=== PATIENT | female | born 1930 | race Caucasian/White ===

== ENCOUNTER 2016-11-22 08:33 | Inpatient (IN) | payer MEDICARE ==
[~2016-11-22] VITALS: Ht 157.5 cm; Wt 61.7 kg
[2016-11-22] VITALS (10 sets, daily range): BP systolic 96–128; BP diastolic 46–64; PULSE 72–103; RESP 16–20; TEMP 98.3–100.3; O2SAT 90–100
[~2016-11-22 08:33] MED LIST: ANAS1 PO; CHOLCRY; DIGO0.12 PO; DILT1TAB4 PO; FURO40TA PO; LEVO75TA3 PO; NITR1CAP37 PO; OXYGENTANK NAS.CANULA; POTA-243 PO; SERT-132 PO; WARF-23 PO
[2016-11-22] MEDS ORDERED: CART240C PO (08:59)
--- NOTE | 2016-11-22 09:10 | PD ---
HPI Chief Complaint: Altered Mental Status Time Seen by Provider: 08:57 Travel History International Travel<30 days: No Contact w/Intl Traveler<30days: No Traveled to known affect area: No History of Present Illness HPI This is an 86-year-old female who presents to the emergency department having been ill with high fevers and productive cough for the past 3 days. She was seen at an urgent care yesterday and told she had pneumonia and they were considering admitting her but ultimately send her home. This morning her son checked on her and found her on the ground. He says the house was in disarray and it looked like she had fallen. The patient says she feels fine. She doesn' t have any complaints at this time. Her son says she was very confused this morning in the front like her. She has no history of dementia. He says often when she's confused means she hasn't slept the night before. She does have a history of mitral valve regurgitation for which she sees a sporting goods sales associate. She is on Lasix and she is on Coumadin and digoxin. PFSH Past Medical History Hx Anticoagulant Therapy: Yes (coumadin) Arthritis: Yes Asthma: No Atrial Fibrillation: Yes Blood Disorders: No Anxiety: No Depression: Yes Heart Rhythm Problems: Yes Cancer: Yes (CASH BREAST) Cardiac Catheterization: Yes Cardiovascular Problems: Yes (htbn on meds) High Cholesterol: No Chemotherapy: No Chest Pain: No Congestive Heart Failure: Yes COPD: Yes Cerebrovascular Accident: No Diabetes: Yes (type 2) Diminished Hearing: No Endocrine: Yes GERD: No Genitourinary: Yes Hiatal Hernia: No Hypertension: Yes Immune Disorder: No Implanted Vascular Access Dvce: Yes (PACER) Kidney Stones: No Musculoskeletal: Yes Neurologic: No Psychiatric: No Reproductive: No Respiratory: Yes (copd) Immunizations Current: Yes Radiation Therapy: Yes Renal Failure: No Sleep Apnea: Yes Thyroid Disease: Yes (GOITER REMOVED) Ulcer: No Menopausal: Yes Past Surgical History Abdominal Surgery: Yes (APPENDECTOMY) AICD: No Appendectomy: Yes Arteriovenous Shunt: No Cardiac Surgery: Yes (PACER) Ear Surgery: No Endocrine Surgery: Yes (GOITER REMOVED) Eye Surgery: No Genitourinary Surgery: No Gynecologic Surgery: Yes (CASH LUMPECTOMY) Hysterectomy: No Insulin Pump: No Joint Replacement: Yes (RIGHT KNEE) Oral Surgery: No Pacemaker: Yes Thoracic Surgery: No Tonsillectomy: Yes 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) Social History Alcohol Use: No Tobacco Use: No (QUIT 40 YRS AGO) Substance Use: No Allergies-Medications (Allergen,Severity, Reaction): Coded Allergies: Codeine (Verified Allergy, Severe, Hallucinations, 11/22/16) Penicillin (Verified Allergy, Unknown, HIVES, 11/22/16) Reported Meds & Prescriptions Reported Meds & Active Scripts Active Levothyroxine (Levothyroxine Sodium) 75 Mcg Tab 75 Mcg PO DAILY Reported Cartia Xt (Diltiazem ER 24 HR) 240 Mg Caper 240 Mg PO DAILY Warfarin 5 Mg Tab 5 Mg PO DAILY Klor-Con 10 (Potassium Chloride) 10 Meq Tab 20 Meq PO BID Arimidex (Anastrozole) 1 Mg Tab 1 Mg PO DAILY Sertraline (Sertraline HCl) 50 Mg Tab 50 Mg PO DAILY Oxygen tank (Oxygen) 1 Ea Tank 2 Liter JONNY.CANKupoya CONTINUOUS Oxygen Concentrator Portable Gaseous 2 L/min via Nasal Cannula Continuous For 99 months Nitrofurantoin Macrocrystal 50 Mg Cap 50 Mg PO BID PRN Furosemide 40 Mg Tab 40 Mg PO BID Digoxin 0.125 Mg Tab 0.125 Mg PO DAILY Review of Systems Except as stated in HPI: all other systems reviewed are Neg Physical Exam Narrative GENERAL: Frail elderly female in no acute distress SKIN: Warm and dry. HEAD: Atraumatic. Normocephalic. EYES: Pupils equal and round. No injection or drainage. ENT: Dry mucous membranes. NECK: Trachea midline. CARDIOVASCULAR: Regular rate and rhythm. No murmur appreciated. RESPIRATORY: Rales in the left upper and lower lung johnson with some tachypnea GASTROINTESTINAL: Abdomen soft, non-tender, nondistended. MUSCULOSKELETAL: No obvious deformities. NEUROLOGICAL: Awake and alert. Oriented to person, place and time. No obvious cranial nerve deficits. Moving all extremities. PSYCHIATRIC: Appropriate mood and affect; insight and judgment normal. Data Data Last Documented VS Vital Signs Date Time Temp Pulse Resp B/P Pulse Ox O2 Delivery O2 Flow Rate FiO2 11/22/16 10:35 101 17 121/64 100 Nasal Cannula 2 11/22/16 08:40 99.3 Orders Electrocardiogram (11/22/16 08:57) Complete Blood Count With Diff (11/22/16 08:57) Comprehensive Metabolic Panel (11/22/16 08:57) Prothrombin Time / Inr (Pt) (11/22/16 08:57) Act Partial Throm Time (Ptt) (11/22/16 08:57) Lactic Acid Sepsis Protocol (11/22/16 08:57) Troponin I (11/22/16 08:57) Urinalysis - C+S If Indicated (11/22/16 08:57) Influenzae A/B Antigen (11/22/16 08:57) Blood Culture (11/22/16 08:57) Sputum Culture And Gram Stain (11/22/16 08:57) Chest, Single Ap (11/22/16 08:57) Blood Glucose (11/22/16 08:57) Ecg Monitoring (11/22/16 08:57) Iv Access Insert/Monitor (11/22/16 08:57) Oximetry (11/22/16 08:57) Oxygen Administration (11/22/16 08:57) Creatine Kinase (Cpk) (11/22/16 08:57) Cath For Specimen (11/22/16 08:57) Ct Brain W/O Iv Contrast(Rout) (11/22/16 ) B-Type Natriuretic Peptide (11/22/16 08:58) Digoxin (11/22/16 08:20) Levofloxacin 750 Mg Premix Inj (Levaquin (11/22/16 10:15) CKMB (11/22/16 08:20) CKMB% (11/22/16 08:20) Urine Culture (11/22/16 10:23) Admit Order (Ed Use Only) (11/22/16 10:35) Labs Laboratory Tests Test 11/22/16 11/22/16 11/22/16 08:20 09:15 10:23 White Blood Count 22.1 TH/MM3 Red Blood Count 3.76 MIL/MM3 Hemoglobin 12.7 GM/DL Hematocrit 38.1 % Mean Corpuscular Volume 101.4 FL Mean Corpuscular Hemoglobin 33.9 PG Mean Corpuscular Hemoglobin 33.4 % Concent Red Cell Distribution Width 16.7 % Platelet Count 183 TH/MM3 Mean Platelet Volume 7.5 FL Neutrophils (%) (Auto) 92.7 % Lymphocytes (%) (Auto) 2.0 % Monocytes (%) (Auto) 5.1 % Eosinophils (%) (Auto) 0.1 % Basophils (%) (Auto) 0.1 % Neutrophils # (Auto) 20.6 TH/MM3 Lymphocytes # (Auto) 0.4 TH/MM3 Monocytes # (Auto) 1.1 TH/MM3 Eosinophils # (Auto) 0.0 TH/MM3 Basophils # (Auto) 0.0 TH/MM3 CBC Comment AUTO DIFF Differential Comment AUTO DIFF CONFIRMED Prothrombin Time 20.7 SEC Prothromb Time International 1.8 RATIO Ratio Activated Partial 40.4 SEC Thromboplast Time Sodium Level 136 MEQ/L Potassium Level 4.3 MEQ/L Chloride Level 99 MEQ/L Carbon Dioxide Level 24.7 MEQ/L Anion Gap 12 MEQ/L Blood Urea Nitrogen 35 MG/DL Creatinine 1.40 MG/DL Estimat Glomerular Filtration 36 ML/MIN Rate Random Glucose 156 MG/DL Calcium Level 9.5 MG/DL Total Bilirubin 3.1 MG/DL Aspartate Amino Transf 46 U/L (AST/SGOT) Alanine Aminotransferase 26 U/L (ALT/SGPT) Alkaline Phosphatase 61 U/L Total Creatine Kinase 396 U/L Creatine Kinase MB 0.8 NG/ML Creatine Kinase MB % 0.2 % Troponin I 0.19 NG/ML B-Type Natriuretic Peptide 1046 PG/ML Total Protein 8.7 GM/DL Albumin 4.1 GM/DL Digoxin Level 1.4 NG/ML Lactic Acid Level 2.7 mmol/L Urine Collection Type CATH Urine Color YELLOW Urine Turbidity MOD Urine pH 5.5 Urine Specific [place] 1.021 Urine Protein 300 OR GREATER mg/dL Urine Glucose (UA) NEG mg/dL Urine Ketones NEG mg/dL Urine Occult Blood LARGE Urine Nitrite NEG Urine Bilirubin NEG Urine Leukocyte Esterase NEG Urine RBC 25-49 /hpf Urine WBC 0-2 /hpf Urine Bacteria OCC /hpf Urine Yeast (Budding) FEW Microscopic Urinalysis Comment CATH-CULTURE IND Urine Collection Time 10:23 MDM Medical Decision Making Medical Screen Exam Complete: Yes Emergency Medical Condition: Yes Interpretation(s) EKG: atrial fibrillation, st depressions in the lateral leads seen on ekg from 04/17 leukocytosis of 22 renal insufficiency with creatinine 1.4 increased from prior troponin .19 bnp elevated Last 24 hours Impressions Chest X-Ray 11/22/16 0857 Signed Impressions: Service Date/Time: Tuesday, November 22, 2016 09:11 - CONCLUSION: 1. Dense airspace consolidation at the left lung apex. In the appropriate clinical setting this could represent an infectious process. Alternatively, a pulmonary mass could have this appearance. 2. Stable enlargement of the cardiac silhouette with mild perihilar interstitial changes which could indicate mild interstitial edema. Austin Skelton MD Head CT 11/22/16 0000 Signed Impressions: Service Date/Time: Tuesday, November 22, 2016 09:46 - CONCLUSION: No acute intracranial abnormality is identified. Austin Skelton MD Differential Diagnosis pneumonia, urinary tract infection, sepsis, congestive heart failure, myocardial infarction Narrative Course This is an 86 year old female who has a history of atrial fibrillation and congestive heart failure who presents to the emergency department with increasing fevers, chills and cough over the past several days. She is placed on a monitor and an IV was established. Labs were obtained which demonstrate a marked leukocytosis. Patient has evidence of a left upper lobe pneumonia on chest x-ray. This is consistent with her symptoms. She was given a dose of Levaquin. She also has an elevated BNP which is consistent with her history of congestive heart failure, and her troponin is 0.19 which I suspect is strain related but should be trended in the hospital. EKG demonstrates some ST depressions in the lateral leads which are not new. I think patient requires admission for continued antibiotic therapy and cardiology consultation. Patient was slightly tachycardic on arrival but didn't take her morning digoxin or diltiazem so both of those were administered in the emergency department. Dr. Sierra called and wants the patient transferred to the main hospital given her elevated troponin. Physician Communication Physician Communication Discussed with Dr. Sierra and Dr. Wells Diagnosis Primary Impression: PNA (pneumonia) Qualified Code: J18.1 - Pneumonia of left upper lobe due to infectious organism Additional Impression: Congestive heart failure (CHF) Qualified Code: I50.9 - Acute on chronic congestive heart failure, unspecified congestive heart failure type Admitting Information Admitting Physician Requests: Admit Lita Maria MD Nov 22, 2016 09:10
[2016-11-22 09:36] LABS: AUTOMATED NEUTROPHIL # 20.6 TH/MM3 (1.8-7.7); BASOPHIL % 0.1 % (0.0-2.0); EOSINOPHIL % 0.1 % (0.0-4.0); HEMATOCRIT 38.1 % (35.0-46.0); LYMPHOCYTE # 0.4 TH/MM3 (1.0-4.8); MEAN CELL VOLUME 101.4 FL (80.0-100.0); MEAN CORPUSCULAR HEMOGLOBIN 33.9 PG (27.0-34.0); MEAN CORPUSCULAR HGB CONC 33.4 % (32.0-36.0); MONO % 5.1 % (0.0-8.0); NEUT % 92.7 % (16.0-70.0); PLATELET COUNT 183 TH/MM3 (150-450); RED BLOOD COUNT 3.76 MIL/MM3 (4.00-5.30); RED CELL DISTRIBUTION WIDTH 16.7 % (11.6-17.2); WHITE BLOOD COUNT 22.1 TH/MM3 (4.0-11.0)
[2016-11-22 09:37] LABS: HEMO FLAGS AUTO DIFF
--- NOTE | 2016-11-22 09:39 | RADHPO ---
EXAM DATE/TIME: 11/22/2016 09:11 [facility] COMPARISON: CHEST SINGLE AP, April 15, 2016, 19:08. INDICATIONS : Short of breath MEDICAL HISTORY : Carcinoma, breast. SURGICAL HISTORY : Pacemaker. ENCOUNTER: Initial ACUITY: 1 day PAIN SCORE: 0/10 LOCATION: Bilateral chest FINDINGS: Portable AP view of the chest demonstrate stable enlargement of the cardiac silhouette. Single lead l eft chest wall cardiac pacing device is present. There is focal dense consolidation in the left lung apex. There are mild interstitial opacities bilaterally. No pneumothorax or pleural effusion is visua lized. CONCLUSION: 1. Dense airspace consolidation at the left lung apex. In the appropriate clinical setting this could represent an infectious process. Alternatively, a pulmonary mass could have this appearance. 2. Stable enlargement of the cardiac silhouette with mild perihilar interstitial changes which could indicate mild interstitial edema. Austin Skelton MD on November 22, 2016 at 9:36 Board Certified Radiologist. This report was verified electronically.
[2016-11-22 09:53] LABS: CHLORIDE 99 MEQ/L (98-107); POTASSIUM 4.3 MEQ/L (3.5-5.1); SODIUM (NA) 136 MEQ/L (136-145)
[2016-11-22 09:57] LABS: ANION GAP 12 MEQ/L (5-15); BICARBONATE 24.7 MEQ/L (21.0-32.0); BLOOD UREA NITROGEN 35 MG/DL (7-18)
[2016-11-22 10:00] LABS: ALT (GPT) 26 U/L (10-53); GLOMERULAR FILTRATION RATE 36 ML/MIN (>89)
[2016-11-22 10:01] LABS: TOTAL BILIRUBIN ADULT 3.1 MG/DL (0.2-1.0)
[2016-11-22 10:03] LABS: ALKALINE PHOSPHATASE 61 U/L (45-117); CREATINE KINASE 396 U/L (26-192)
[2016-11-22 10:04] LABS: AST (GOT) 46 U/L (15-37); SCAN/DIFF AUTO DIFF CONFIRMED
[2016-11-22 10:11] LABS: APTT (PATIENT) 40.4 SEC (24.3-30.1); INTERNATIONAL NORMALIZED RATIO 1.8 RATIO; PROTHROMBIN TIME - PATIENT 20.7 SEC (9.8-11.6)
[2016-11-22 10:14] LABS: DIGOXIN 1.4 NG/ML (0.8-2.0)
[2016-11-22 10:15] LABS: CKMB 0.8 NG/ML (0.5-3.6)
[2016-11-22] MEDS ORDERED: LEVOFLOXACIN 750 MG PREMIX INJ 150 ML IV ONE (10:15)
--- NOTE | 2016-11-22 10:19 | RADHPO ---
EXAM DATE/TIME: 11/22/2016 09:46 [facility] COMPARISON: No previous studies available for comparison. INDICATIONS : Fall last night, confusion this morning. RADIATION DOSE: 62.50 CTDIvol (mGy) MEDICAL HISTORY : Carcinoma, breast. Congestive heart failure. Diabetes mellitus type 2. SURGICAL HISTORY : Pacemaker. ENCOUNTER: Initial ACUITY: 1 day PAIN SCALE: 0/10 LOCATION: Bilateral head TECHNIQUE: Multiple contiguous axial images were obtained of the head. Using automated exposure control and adj ustment of the mA and/or kV according to patient size, radiation dose was kept as low as reasonably a chievable to obtain optimal diagnostic quality images. FINDINGS: CEREBRUM: The ventricles are normal for age. No evidence of midline shift, mass lesion, hemorrhage or acute in farction. No extra-axial fluid collections are seen. POSTERIOR FOSSA: The cerebellum and brainstem are intact. The 4th ventricle is midline. The cerebellopontine angle i s unremarkable. EXTRACRANIAL: The visualized portion of the orbits is intact. SKULL: The calvaria is intact. No evidence of skull fracture. CONCLUSION: No acute intracranial abnormality is identified. Austin Skelton MD on November 22, 2016 at 10:16 Board Certified Radiologist. This report was verified electronically.
[2016-11-22 10:27] LABS: BLOOD, URINE LARGE (NEG); GLUCOSE,URINE NEG (NEG); KETONE, URINE NEG (NEG); NITRITE,URINE NEG (NEG); PH, URINE 5.5 (5.0-8.5)
[2016-11-22 10:36] LABS: METHOD OF COLLECTION CATH; URINE COLOR YELLOW (YELLW/STRAW); WBC, URINE 0-2 /hpf (0-5)
[2016-11-22 10:37] LABS: BACTERIA, URINE OCC /hpf; COMMENT (UR) CATH-CULTURE IND; CULTURE IF INDICATED CATH CULTURE IND
[2016-11-22] MEDS ORDERED: SODIUM CHLORIDE 0.9% FLUSH 5 ML FLUSH IV FLUSH PRN (10:45)
[2016-11-22] MEDS ORDERED: RESP: ALBUTEROL 2.5 MG/IPRATROPIUM 0.5 MG NEB (PRN) INH (10:45)
[2016-11-22] MEDS ORDERED: ASPIRIN 81 MG CHEW TAB CHEW ONE (11:00)
[2016-11-22 11:33] LABS: LACTIC ACID GHOST NOT REPORTABLE
[2016-11-22] MEDS ORDERED: DILTIAZEM-CD 240 MG CAP ER PO ONE (12:00)
[2016-11-22] MEDS ORDERED: DIGOXIN 0.125 MG TAB PO ONE (12:00)
[2016-11-22] MEDS: AZTREONAM INJ 1,000 MG in SODIUM CHLORIDE 0.9% INJ 100 ML IV SCH ×2 (12:57→15:59)
--- NOTE | 2016-11-22 16:13 | RADHPO ---
EXAM DATE/TIME: 11/22/2016 15:06 [facility] COMPARISON: CHEST SINGLE AP, April 15, 2016, 19:08. CHEST SINGLE AP, November 22, 2016, 9:11. INDICATIONS : Evaluate for mass. RADIATION DOSE: 7.09 CTDIvol (mGy) MEDICAL HISTORY : Congestive heart failure. Hypertension. Carcinoma, breast. SURGICAL HISTORY : Pacemaker. ENCOUNTER: Initial ACUITY: 1 day PAIN SCALE: 0/10 LOCATION: Bilateral chest TECHNIQUE: Volumetric scanning of the chest was performed. Using automated exposure control and adjustment of t he mA and/or kV according to patient size, radiation dose was kept as low as reasonably achievable to obtain optimal diagnostic quality images. FINDINGS: There is a masslike area occupying much of the upper aspect of the left upper lung measuring at least 8 cm in diameter. There is some surrounding inflammatory change seen in this region. There is some milder consolidation seen in the superior segment of the left lower lobe. The right lung is grossly free of consolidation. There is a calcified granuloma in the right upper lung. No effusion is seen . There are prominent lymph nodes in the superior mediastinum, the prevascular region, the left trac heobronchial region and the subcarinal region. The heart size is enlarged especially the left atrium . The patient has a pacing device in place. Atherosclerotic calcifications are seen throughout the arterial system including the coronary arteries. There is degenerative change in the lower thoracic and upper lumbar spine. CONCLUSION: 1. Large masslike area seen in the left upper lung. This could represent a large area of consolidat ion. It could also represent a large neoplasm. There is associated adenopathy seen throughout the m ediastinum as described above. 2. Cardiomegaly. Patient has a pacemaker in place. Austin Pino MD on November 22, 2016 at 15:50 Board Certified Radiologist. This report was verified electronically.
[2016-11-22] MEDS: POTASSIUM CHLORIDE 10 MEQ CONTROLLED RELEASE TAB PO SCH (21:46)
[2016-11-22] MEDS: FUROSEMIDE 40 MG TAB PO SCH (21:47)
[2016-11-22] MEDS: SODIUM CHLORIDE 0.9% FLUSH 5 ML FLUSH IV FLUSH SCH (21:47)
[2016-11-22 22:37] LABS: CKMB 0.7 NG/ML (0.5-3.6)
[2016-11-22] MEDS ORDERED: SERTRALINE HCL 50 MG TAB PO ONE (23:45)
[2016-11-23] VITALS (15 sets, daily range): BP systolic 95–126; BP diastolic 50–73; PULSE 74–111; RESP 18–22; TEMP 98.1–99.4; O2SAT 90–96
[2016-11-23] MEDS: ONDANSETRON HCL 4 MG/2 ML VIAL IV PUSH PRN (01:37)
[2016-11-23] MEDS: AZTREONAM INJ 1,000 MG in SODIUM CHLORIDE 0.9% INJ 100 ML IV SCH ×3 (04:00→22:23)
[2016-11-23 06:58] LABS: AUTOMATED NEUTROPHIL # 20.8 TH/MM3 (1.8-7.7); BASOPHIL % 0.2 % (0.0-2.0); HEMATOCRIT 31.6 % (35.0-46.0); LYMPHOCYTE # 0.5 TH/MM3 (1.0-4.8); MEAN CORPUSCULAR HEMOGLOBIN 34.1 PG (27.0-34.0); MEAN CORPUSCULAR HGB CONC 34.1 % (32.0-36.0); NEUT % 92.8 % (16.0-70.0); PLATELET COUNT 148 TH/MM3 (150-450); RED BLOOD COUNT 3.16 MIL/MM3 (4.00-5.30); RED CELL DISTRIBUTION WIDTH 16.9 % (11.6-17.2); WHITE BLOOD COUNT 22.4 TH/MM3 (4.0-11.0)
[2016-11-23 07:02] LABS: HEMO FLAGS AUTO DIFF
[2016-11-23 07:16] LABS: BICARBONATE 23.4 MEQ/L (21.0-32.0); POTASSIUM 3.9 MEQ/L (3.5-5.1)
[2016-11-23] MEDS ORDERED: WARFARIN SOD 5 MG TAB PO SCH (09:00)
[2016-11-23] MEDS ORDERED: SERTRALINE HCL 50 MG TAB PO SCH (09:00)
[2016-11-23 09:36] LABS: BANDS 15 % (0-6); NEUTROPHIL # MANUAL DIFF 19.7 TH/MM3 (1.8-7.7); POLYS (SEG NEUTROPHILS) 73 % (16-70); WBC DIFF SAMPLE 100
[2016-11-23 09:37] LABS: KERATOCYTES OCC (NORMAL); OVALOCYTES 1+ (NORMAL); PLATELET ESTIMATE SMEAR NORMAL (NORMAL); PLATELET MORPHOLOGY NORMAL (NORMAL); SCAN/DIFF FINAL DIFF MANUAL
--- NOTE | 2016-11-23 09:38 | HHI.HP ---
HPI Service [facility] Primary Care Physician Nadya Cuello MD Admission Diagnosis pneumonia, chf Diagnoses: (1) Severe sepsis (2) Toxic metabolic encephalopathy (3) PNA (pneumonia) (4) COPD (chronic obstructive pulmonary disease) (5) ARF (acute renal failure) (6) Hypothyroidism (7) Non-ST elevation IN (NSTEMI) Chief Complaint: High fever and chills along with cough production Travel History International Travel<30 Days: No Contact w/Intl Traveler <30 Da: No Traveled to Known Affected Are: No Sepsis Criteria SIRS Criteria (2 or more): Heart rate over 90, WBC > 72225, < 4000 or > 10% bands Sepsis Criteria (SIRS+source): Infect source susp/known Severe Sepsis (+one): Lactate >2 History of Present Illness 86 year-old female with a history of of atrial fibrillation on Coumadin was brought to the emergency department for evaluation of 3 day history of febrile episode along with cough production. Apparently patient was seen by local urgent care on 11/21/16 and was diagnosed with pneumonia however discharge home. Early yesterday morning on 11/22/16, patient was found on the ground by her son will check on her and stated she was fine however confused. At that time she has no complaints. Patient denies any GI bleed or abdominal pain or current chest pain Review of Systems Other Other 12 systems reviewed and are negative except for the one mentioned in the history of present illness Past Family Social History Past Medical History CHF, atrial fib, Rheumatic fever as a child, mitral and tricuspid valve regurgitation, Aortic stenosis, depression, hypothyroidism, breast cancer s/p lumpectomy/radiation CKD Past Surgical History Appendectomy, bilateral lumpectomies, pacemaker placement, thyroidectomy, left total knee arthroplasty Reported Medications Levothyroxine (Levothyroxine Sodium) 75 Mcg Tab 75 Mcg PO DAILY Cartia Xt (Diltiazem ER 24 HR) 240 Mg Caper 240 Mg PO DAILY Warfarin 5 Mg Tab 5 Mg PO DAILY Klor-Con 10 (Potassium Chloride) 10 Meq Tab 20 Meq PO BID Arimidex (Anastrozole) 1 Mg Tab 1 Mg PO DAILY Sertraline (Sertraline HCl) 50 Mg Tab 50 Mg PO DAILY Oxygen tank (Oxygen) 1 Ea Tank 2 Liter JONNY.CANULA CONTINUOUS Oxygen Concentrator Portable Gaseous 2 L/min via Nasal Cannula Continuous For 99 months Nitrofurantoin Macrocrystal 50 Mg Cap 50 Mg PO BID PRN Furosemide 40 Mg Tab 40 Mg PO BID Digoxin 0.125 Mg Tab 0.125 Mg PO DAILY Allergies: Coded Allergies: Codeine (Verified Allergy, Severe, Hallucinations, 11/22/16) Penicillin (Verified Allergy, Unknown, HIVES, 11/22/16) Family History daughter from breast CA sister w breast CA brother w lung CA father w CVA Mom with emphysema Social History smoked tobacco 1ppd from age [age], quit 50 years ago denies any alcohol or illegal drug use Physical Exam Vital Signs Vital Signs Date Time Temp Pulse Resp B/P Pulse Ox O2 Delivery O2 Flow Rate FiO2 11/23/16 08:00 98.1 94 20 104/59 95 11/23/16 05:13 98.1 97 18 99/57 92 11/23/16 05:12 92 Nasal Cannula 2.00 11/23/16 03:20 91 Nasal Cannula 2.00 11/23/16 01:00 98.3 106 18 126/63 91 11/23/16 00:00 91 Nasal Cannula 2.00 11/22/16 20:16 94 Nasal Cannula 2.00 11/22/16 20:06 98.3 72 16 102/46 94 11/22/16 20:00 85 11/22/16 19:14 100 Nasal Cannula 2.00 11/22/16 19:00 87 11/22/16 18:00 100.3 86 20 96/54 92 11/22/16 18:00 92 Nasal Cannula 2.00 11/22/16 13:52 99.4 101 17 126/60 97 Nasal Cannula 2 11/22/16 13:38 100 Nasal Cannula 2.00 11/22/16 10:35 101 17 121/64 100 Nasal Cannula 2 11/22/16 09:59 17 100 Nasal Cannula 2 11/22/16 09:51 89 89 Nasal Cannula 2 11/22/16 09:51 100 Nasal Cannula 2 Physical Exam GENERAL: This is a well-nourished, well-developed patient, in no apparent distress. SKIN: No rashes, ecchymoses or lesions. Cool and dry. HEAD: Atraumatic. Normocephalic. No temporal or scalp tenderness. EYES: Pupils equal round and reactive. Extraocular motions intact. No scleral icterus. No injection or drainage. ENT: Nose without bleeding, purulent drainage or septal hematoma. Throat without erythema, tonsillar hypertrophy or exudate. Uvula midline. Airway patent. NECK: Trachea midline. No JVD or lymphadenopathy. Supple, nontender, no meningeal signs. CARDIOVASCULAR: Regular rate and rhythm without murmurs, gallops, or rubs. RESPIRATORY: Clear to auscultation. Breath sounds equal bilaterally. No wheezes , rales, or rhonchi. GASTROINTESTINAL: Abdomen soft, non-tender, nondistended. No hepato-splenomegaly , or palpable masses. No guarding. MUSCULOSKELETAL: Extremities without clubbing, cyanosis, or edema. No joint tenderness, effusion, or edema noted. No calf tenderness. Negative Homans sign bilaterally. NEUROLOGICAL: Awake and alert. Cranial nerves II through XII intact. Motor and sensory grossly within normal limits. Five out of 5 muscle strength in all muscle groups. Normal speech. Laboratory Laboratory Tests Test 11/22/16 11/22/16 11/22/16 11/22/16 10:23 11:20 14:20 21:25 Urine Collection Type CATH Urine Color YELLOW Urine Turbidity MOD Urine pH 5.5 Urine Specific [place] 1.021 Urine Protein 300 OR GREATER Urine Glucose (UA) NEG Urine Ketones NEG Urine Occult Blood LARGE Urine Nitrite NEG Urine Bilirubin NEG Urine Leukocyte Esterase NEG Urine RBC 25-49 Urine WBC 0-2 Urine Bacteria OCC Urine Yeast (Budding) FEW Microscopic Urinalysis Comment CATH-CULTURE IND Urine Collection Time 10:23 Lactic Acid Level 1.8 Total Creatine Kinase 351 246 Creatine Kinase MB 1.0 0.7 Creatine Kinase MB % 0.3 0.3 Troponin I 0.27 0.15 Test 11/23/16 05:30 White Blood Count 22.4 Red Blood Count 3.16 Hemoglobin 10.8 Hematocrit 31.6 Mean Corpuscular Volume 100.0 Mean Corpuscular Hemoglobin 34.1 Mean Corpuscular Hemoglobin 34.1 Concent Red Cell Distribution Width 16.9 Platelet Count 148 Mean Platelet Volume 8.7 Neutrophils (%) (Auto) 92.8 Lymphocytes (%) (Auto) 2.0 Monocytes (%) (Auto) 5.0 Eosinophils (%) (Auto) 0.0 Basophils (%) (Auto) 0.2 Neutrophils # (Auto) 20.8 Lymphocytes # (Auto) 0.5 Monocytes # (Auto) 1.1 Eosinophils # (Auto) 0.0 Basophils # (Auto) 0.0 CBC Comment AUTO DIFF Sodium Level 134 Potassium Level 3.9 Chloride Level 100 Carbon Dioxide Level 23.4 Anion Gap 11 Blood Urea Nitrogen 36 Creatinine 1.07 Estimat Glomerular Filtration 49 Rate Random Glucose 98 Calcium Level 8.6 Date/Time Procedure Status Source Growth 11/22/16 23:30 Gram Stain - Final Resulted Sputum Expectorated Sputum 11/22/16 23:30 Sputum Culture Resulted Sputum Expectorated Sputum Pending 11/22/16 10:23 Urine Culture Received Urine Catheterized Urine Pending 11/22/16 10:23 Legionella Antigen Received Urine Random Urine Pending 11/22/16 10:23 Streptococcus pneumoniae Antigen (M Received Urine Random Urine Pending 11/22/16 09:25 Aerobic Blood Culture Received Blood Peripheral Pending 11/22/16 09:25 Anaerobic Blood Culture Received Blood Peripheral Pending 11/22/16 09:15 Influenza Types A,B Antigen (CARLA) - Final Complete Nasal Washing NEGATIVE FOR FLU A AND B ANTIGEN.... Result Diagram: 11/23/16 0530 11/23/16 0530 Imaging Last Impressions Chest X-Ray 11/22/16 0857 Signed Impressions: Service Date/Time: Tuesday, November 22, 2016 09:11 - CONCLUSION: 1. Dense airspace consolidation at the left lung apex. In the appropriate clinical setting this could represent an infectious process. Alternatively, a pulmonary mass could have this appearance. 2. Stable enlargement of the cardiac silhouette with mild perihilar interstitial changes which could indicate mild interstitial edema. Austin Skelton MD Head CT 11/22/16 0000 Signed Impressions: Service Date/Time: Tuesday, November 22, 2016 09:46 - CONCLUSION: No acute intracranial abnormality is identified. Austin Skelton MD Chest CT 11/22/16 0000 Signed Impressions: Service Date/Time: Tuesday, November 22, 2016 15:06 - CONCLUSION: 1. Large masslike area seen in the left upper lung. This could represent a large area of consolidation. It could also represent a large neoplasm. There is associated adenopathy seen throughout the mediastinum as described above. 2. Cardiomegaly. Patient has a pacemaker in place. Austin Pino MD Assessment and Plan Problem List: (1) Severe sepsis ICD Code: A41.9 Status: Acute (2) Toxic metabolic encephalopathy ICD Code: G92 Status: Acute (3) PNA (pneumonia) ICD Code: J18.9 Status: Acute Assessment and Plan 86-year-old female with Severe sepsis: Heart rate over 90, WBC > 76771, < 4000 or > 10% bands, Lactate > 2 and source due to pneumonia; status post Levaquin in ED, currently on Azactam and Levaquin IV. Follow blood, sputum culture as well as Legionella and strep pneumo antigen Community-acquired pneumonia: Chest x-ray noted and reviewed by me with finding of Dense airspace consolidation at the left lung apex. Follow-up CT chest with finding of Large masslike area seen in the left upper lung. Flu A and B antigens negative. Currently on Azactam Levaquin pending sputum culture. Maintain oxygen saturation above 92%, DuoNeb when necessary Toxic metabolic encephalopathy: From above infectious processes versus CHF exacerbation. Head CT noted and reviewed by me with No acute intracranial abnormality is identified. Patient currently alert and oriented 3. Encephalopathy resolved. CHF exacerbation: Unknown type; BNP 1046 with elevated serial cardiac enzyme for which cardiology has been consulted. Currently on Lasix by mouth twice a day, CHF education and strict I's and O's. Check 2-D echo Elevated cardiac enzyme: Likely secondary to CHF exacerbation. Cardiology consultation pending Acute on chronic kidney disease: Renal indices improving, however secondary to CHF exacerbation will hold on IV fluid hydration. Monitor BUN/creatinine and avoid all nephrotoxic drugs Atrial fibrillation: Currently rate control on Cardizem, Coumadin, digoxin and monitor level. Monitor INR/ History of breast cancer: Continue Arimidex COPD with oxygen dependent: No exacerbation, DuoNeb when necessary and keep oxygen saturation above 92% Hypothyroidism: Continue Synthroid DVT prophylaxis: Coumadin GI prophylaxis: PPI Code Status Full code Discussed Condition With Patient Physician Certification 2 Midnight Certification Type: Admission for Inpatient Services Order for Inpatient Services The services are ordered in accordance with Medicare regulations or non- Medicare payer requirements, as applicable. In the case of services not specified as inpatient-only, they are appropriately provided as inpatient services in accordance with the 2-midnight benchmark. Estimated LOS (days): 2 days is the estimated time the patient will need to remain in the hospital, assuming treatment plan goals are met and no additional complications. Post-Hospital Plan: Not yet determined Problem Qualifiers (1) PNA (pneumonia): Qualified Code: J18.1 - Pneumonia of left upper lobe due to infectious organism Aquilino Estrada MD Nov 23, 2016 09:38
[2016-11-23] MEDS: POTASSIUM CHLORIDE 10 MEQ CONTROLLED RELEASE TAB PO SCH ×2 (09:52→22:21)
[2016-11-23] MEDS: FUROSEMIDE 40 MG TAB PO SCH ×2 (09:52→22:21)
[2016-11-23] MEDS: DILTIAZEM-CD 240 MG CAP ER PO SCH (09:52)
[2016-11-23] MEDS: DIGOXIN 0.125 MG TAB PO SCH (09:52)
[2016-11-23] MEDS: LEVOTHYROXINE SODIUM 75 MCG TAB PO SCH (09:53)
[2016-11-23] MEDS ORDERED: RESP: ALBUTEROL 2.5 MG/IPRATROPIUM 0.5 MG NEB (PRN) NEB (10:00)
--- NOTE | 2016-11-23 10:43 | EC ---
Study Study Date:11/22/2016 STUDY CONCLUSIONS SUMMARY - Left ventricle: The cavity size was normal. Wall thickness was normal. Systolic function was normal. The estimated ejection fraction was in the range of 55% to 60%. Wall motion was normal; there were no regional wall motion abnormalities. - Aortic valve: Mild regurgitation. - Mitral valve: Moderate regurgitation. - Tricuspid valve: Severe regurgitation. - Pulmonary arteries: PA peak pressure: 157mm Hg (S). If LV function is below 40, please consider prescribing an ACEI or ARB or document rationale for non-use. PROCEDURE DATA STUDY STATUS: Elective. Procedure: Transthoracic echocardiography. Image quality was good. Scanning was performed from the parasternal, apical, and subcostal acoustic windows. Study completion: The patient tolerated the procedure well. Transthoracic echocardiography. M-mode, complete 2D, complete spectral Doppler, and color Doppler. Patient status: Inpatient. CARDIAC ANATOMY LEFT VENTRICLE: The cavity size was normal. Wall thickness was normal. Systolic function was normal. The estimated ejection fraction was in the range of 55% to 60%. Wall motion was normal; there were no regional wall motion abnormalities. AORTIC VALVE: heavily calcified, mean gradient = 18 mm hg c/w mild to moderate stenosis Trileaflet; normal thickness leaflets. Doppler: Transvalvular velocity was within the normal range. There was no stenosis. Mild regurgitation. Mean gradient: 18mm Hg (S). Peak gradient: 40mm Hg (S). AORTA: Aortic root: The aortic root was normal in size. MITRAL VALVE: leaflets appear domed and stenotic, peak gradient = 15 mm hg suggestive of moderate to severe stenosis, mean gradient and area not determined on this study Structurally normal valve. Doppler: Transvalvular velocity was within the normal range. There was no evidence for stenosis. Moderate regurgitation. Valve area by pressure half-time: 4.78cm^2. Mean gradient: 8mm Hg (D). Peak gradient: 20mm Hg (D). LEFT ATRIUM: severely enlarged The atrium was normal in size. RIGHT VENTRICLE: The cavity size was normal. Wall thickness was normal. PULMONIC VALVE: Doppler: Transvalvular velocity was within the normal range. There was no evidence for stenosis. No regurgitation. TRICUSPID VALVE: Structurally normal valve. Doppler: Transvalvular velocity was within the normal range. Severe regurgitation. PULMONARY ARTERY: The main pulmonary artery was normal-sized. Systolic pressure was within the normal range. RIGHT ATRIUM: The atrium was normal in size. PERICARDIUM: There was no pericardial effusion. SYSTEMIC VEINS: Inferior vena cava: The vessel was normal in size. BASIC MEASUREMENTS ADULT NORMAL Left ventricle LV internal dimension, ED, chordal level, 46 mm 43-52 PLAX LV posterior wall thickness, ED 10.5 mm IVS/LVPW ratio, ED 1.21 <1.3 Ventricular septum Septal thickness, ED 12.7 mm Left atrium Anterior-posterior dimension 49 mm Right ventricle RV internal dimension, ED, PLAX 27.3 mm 19-38 DOPPLER MEASUREMENTS ADULT NORMAL Main pulmonary artery Pressure, S *157 mm Hg =30 Aortic valve Peak velocity, S 316 cm/s Mean velocity, S 186 cm/s VTI, S 41.7 cm Mean gradient, S 18 mm Hg Peak gradient, S 40 mm Hg Mitral valve Peak E-wave velocity 196 cm/s Mean velocity, D 127 cm/s Pressure half-time 46 ms Mean gradient, D 8 mm Hg Peak gradient, D 20 mm Hg Valve area, pressure half-time 4.78 cm^2 Maximal regurgitant velocity 565 cm/s Tricuspid valve Regurgitant peak velocity 452 cm/s Peak RV-RA gradient, S 82 mm Hg Maximal regurgitant velocity 452 cm/s Systemic veins Estimated CVP 5 mm Hg Right ventricle RV pressure, S *157 mm Hg <30 LEGEND: Mean values are shown as u=mean value. Asterisk (*) hernandez values outside specified normal range. Prepared and signed by Jignesh Sierra [id number]
[2016-11-23] MEDS: ANASTROZOLE 1 MG TAB PO SCH (14:43)
[2016-11-23] MEDS: SODIUM CHLORIDE 0.9% FLUSH 5 ML FLUSH IV FLUSH SCH ×2 (14:44→22:21)
--- NOTE | 2016-11-23 20:36 | MB ---
cc: CHRISTELLE LOPEZ M.D. DATE OF CONSULTATION: 11/23/2016. HISTORY OF PRESENT ILLNESS: This is a very pleasant 86-year-old lady followed by a transmitter tester in [place] for valvular heart disease and atrial fibrillation. She presents to the emergency room with chief complaint of fever and cough x3 days and was told she had pneumonia at the urgent care center. She was found to be in disarray status post fall by her son. Currently she is lying in bed in no acute distress. Denies any GI or bleeding, PND, orthopnea or dizziness. PAST MEDICAL HISTORY: Per the history of present illness. 1. She also has a history of arthritis. 2. Depression. 3. Breast cancer, bilateral. 4. She thinks she had a heart catheterization about a year which showed no significant obstructive disease at [facility]. 5. She has a history of congestive heart failure. 6. Diabetes. 7. Pacemaker placement. 8. Status post radiation. 9. Status post goiter removal. 10. Appendectomy. 11. Lumpectomy bilaterally. 12. Knee replacement on the right side. SOCIAL HISTORY: Denies tobacco or alcohol use. ALLERGIES: 1. CODEINE. 2. PENICILLIN. MEDICATIONS PRIOR TO ADMISSION: 1. Levothyroxine. 2. Cartia XT 240 daily. 3. Warfarin 5 milligrams daily. 4. Klor-Con 3 milliequivalents twice a day. 5. Anastrazole. 6. Sertraline. 7. Home oxygen 2 liters. 8. Nitrofurantoin. 9. Lasix 40 twice a day. 10. Digoxin 0.125 daily. MEDICATIONS IN THE HOSPITAL: 1. Levofloxacin. 2. Sertraline. 3. Albuterol. 4. Arimidex. 5. Digoxin 0.125 daily. 6. Cardizem 240 daily. 7. Levothyroxine 75 micrograms daily. 8. Warfarin 5 milligrams daily. 9. Ondansetron. 10. Lasix 40 twice a day. 11. Potassium 20 milliequivalents twice a day. 12. Aztreonam. 13. Albuterol. PHYSICAL EXAMINATION: VITAL SIGNS: Blood pressure 115/73, pulse 84, respiratory rate 22, temperature 98.4. GENERAL: She is alert and oriented times three and in no acute distress. NECK: The neck is supple. No jugular venous distention. No bruits. CARDIOVASCULAR EXAM: S1 and S2. No murmurs, rubs or gallops. LUNGS: Notable for decreased air movement at the bases. ABDOMEN: The abdomen is soft, nontender and nondistended with positive bowel sounds. EXTREMITIES: No lower extremity edema. IMAGING STUDIES: Chest x-ray shows dense airspace consolidation at the left lung cannot exclude pulmonary mass. Stable left cardiac silhouette with mild perihilar interstitial changes which could indicate mild interstitial edema. Chest CT shows large mass-like area seen in the left upper lobe and this could represent a large area of consolidation and could also represent a large neoplasm. There is associated adenopathy seen throughout the mediastinum as described above. Cardiomegaly. Pacemaker in place. Head CT shows no acute intracranial abnormality is identified. CARDIOLOGY STUDIES: Echocardiogram read by myself shows ejection fraction 55% to 60%, mild aortic valve regurgitation. Moderate mitral valve regurgitation, severe tricuspid valve regurgitation, PA pressure 157 mmHg. The mitral valve appears to be domed and possibly stenotic. The mean aortic valve gradient is 18 mmHg consistent with moderate aortic valve stenosis. The peak gradient recorded across the mitral valve is 20 mmHg and mean gradient 8 mmHg. The left atrium is severely enlarged. LABORATORY DATA: White count is 22.4, hemoglobin 10.8, hematocrit 31.6, platelet count 148,000. Sodium 134, potassium 3.9, chloride 100, bicarbonate 23.4, BUN 36, creatinine 1.07. Troponin is 0.27 and 0.15. INR is 1.8. Digoxin is 1.4. EKGS: EKG shows atrial fibrillation with rate of 104 beats per minute, 1 to 2 mm pressure with deep T wave inversions in leads V4, V5 and V6, leads II, III, and aVf. DIAGNOSES: She has the following diagnoses: 1. NSTEMI. 2. Moderate mitral regurgitation. 3. Severe pulmonary hypertension. 4. Moderate aortic valve stenosis. 5. Possibly moderate to severe mitral valve stenosis. 6. Ischemic-appearing EKG versus Digoxin effect. 7. Lung mass. 8. Possible lung cancer. 9. Hyponatremia. 10. Anemia. 11. Elevated white count. 12. Thrombocytopenia. DISCUSSION: At this point in time, will attempt to retrieve the patient's previous heart catheterization. In the absence of that, I would have to recommend left heart catheterization given the ischemic EKG changes which again could be digoxin effect, but her troponin is elevated and she has multiple risk factors. I have discussed this at length with her son and her. I have also talked about how all of her symptoms and presentation could be from her valvular heart disease versus pneumonia versus coronary artery disease. Again, without left heart catheterization diagnosis would be nondefinitive. At this point in time, will hold the coumadin. Follow up further evaluation of the lung mass as well. Certainly consider left heart catheterization tomorrow provided that the lung mass does not portend a poor prognosis. I have explained to the patient and her son that the risk of cardiac catheterization and percutaneous coronary intervention is a 10% chance of , stroke, heart attack, bleeding, need for emergency bypass surgery, need for surgery, need for dialysis, need for blood transfusion, anaphylaxis, arrhythmia, bleeding and infection. The patient and her son understand and agree to proceed with the procedure if indicated. MD NITESH Graham/JCC /2:15 PM /8:18 PM
[2016-11-23] MEDS: SERTRALINE HCL 50 MG TAB PO SCH (22:21)
[2016-11-24] VITALS (22 sets, daily range): BP systolic 93–116; BP diastolic 52–77; PULSE 60–87; RESP 16–20; TEMP 97.3–98.7; O2SAT 90–93
[2016-11-24 05:07] LABS: AUTOMATED NEUTROPHIL # 16.3 TH/MM3 (1.8-7.7); BASOPHIL % 0.2 % (0.0-2.0); EOSINOPHIL % 0.1 % (0.0-4.0); HEMATOCRIT 30.5 % (35.0-46.0); HEMO FLAGS DIFF FINAL; LYMPH % 2.7 % (9.0-44.0); LYMPHOCYTE # 0.5 TH/MM3 (1.0-4.8); MEAN CELL VOLUME 100.4 FL (80.0-100.0); MEAN CORPUSCULAR HEMOGLOBIN 33.5 PG (27.0-34.0); MEAN CORPUSCULAR HGB CONC 33.4 % (32.0-36.0); MONO % 5.1 % (0.0-8.0); NEUT % 91.9 % (16.0-70.0); PLATELET COUNT 167 TH/MM3 (150-450); RED BLOOD COUNT 3.04 MIL/MM3 (4.00-5.30); RED CELL DISTRIBUTION WIDTH 17.1 % (11.6-17.2); WHITE BLOOD COUNT 17.8 TH/MM3 (4.0-11.0)
[2016-11-24 05:10] LABS: HEMATOCRIT 30.7 % (35.0-46.0); MEAN CELL VOLUME 100.2 FL (80.0-100.0); MEAN CORPUSCULAR HEMOGLOBIN 33.6 PG (27.0-34.0); MEAN CORPUSCULAR HGB CONC 33.5 % (32.0-36.0); PLATELET COUNT 149 TH/MM3 (150-450); RED BLOOD COUNT 3.06 MIL/MM3 (4.00-5.30); RED CELL DISTRIBUTION WIDTH 16.8 % (11.6-17.2); REVIEW FLAG FINAL; WHITE BLOOD COUNT 17.4 TH/MM3 (4.0-11.0)
[2016-11-24 05:15] LABS: PROTHROMBIN TIME - PATIENT 47.4 SEC (9.8-11.6)
[2016-11-24 05:30] LABS: BICARBONATE 24.7 MEQ/L (21.0-32.0); POTASSIUM 3.9 MEQ/L (3.5-5.1)
[2016-11-24] MEDS: SODIUM CHLORIDE 0.9% FLUSH 5 ML FLUSH IV FLUSH SCH ×2 (08:46→21:02)
[2016-11-24] MEDS: ANASTROZOLE 1 MG TAB PO SCH (08:47)
[2016-11-24] MEDS: LEVOTHYROXINE SODIUM 75 MCG TAB PO SCH (08:47)
[2016-11-24] MEDS: POTASSIUM CHLORIDE 10 MEQ CONTROLLED RELEASE TAB PO SCH ×2 (08:47→21:02)
[2016-11-24] MEDS: DILTIAZEM-CD 240 MG CAP ER PO SCH (08:48)
[2016-11-24] MEDS: FUROSEMIDE 40 MG TAB PO SCH ×2 (08:48→21:03)
[2016-11-24] MEDS: DIGOXIN 0.125 MG TAB PO SCH (08:48)
--- NOTE | 2016-11-24 09:50 | HHI.PR ---
Subjective Remarks Follow-up CHF/pneumonia 11/24/16-patient seen and examined, currently nothing by mouth pending left heart catheterization today. Denies any chest pain or shortness of breath. Requesting if she can be fed Objective Vitals Vital Signs Date Time Temp Pulse Resp B/P Pulse Ox O2 Delivery O2 Flow Rate FiO2 11/24/16 06:26 97.3 65 20 116/77 90 11/24/16 06:07 91 Nasal Cannula 2.00 11/24/16 02:00 73 11/24/16 01:00 82 11/24/16 00:20 91 Nasal Cannula 2.00 11/24/16 00:19 97.3 87 20 102/67 91 11/24/16 00:00 78 11/23/16 23:00 78 11/23/16 22:00 74 11/23/16 21:16 Nasal Cannula 2.00 11/23/16 21:01 99.2 84 20 100/63 90 11/23/16 21:00 81 11/23/16 20:42 92 Nasal Cannula 2.00 11/23/16 20:00 87 11/23/16 19:00 79 11/23/16 17:02 98.8 88 22 95/50 95 11/23/16 13:00 91 11/23/16 12:53 99.4 84 22 115/73 96 11/23/16 11:00 111 11/23/16 10:00 102 Result Diagram: 11/24/16 0326 11/24/16 0326 Imaging Last Impressions Chest X-Ray 11/22/16 0857 Signed Impressions: Service Date/Time: Tuesday, November 22, 2016 09:11 - CONCLUSION: 1. Dense airspace consolidation at the left lung apex. In the appropriate clinical setting this could represent an infectious process. Alternatively, a pulmonary mass could have this appearance. 2. Stable enlargement of the cardiac silhouette with mild perihilar interstitial changes which could indicate mild interstitial edema. Austin Skelton MD Head CT 11/22/16 0000 Signed Impressions: Service Date/Time: Tuesday, November 22, 2016 09:46 - CONCLUSION: No acute intracranial abnormality is identified. Austin Skelton MD Chest CT 11/22/16 0000 Signed Impressions: Service Date/Time: Tuesday, November 22, 2016 15:06 - CONCLUSION: 1. Large masslike area seen in the left upper lung. This could represent a large area of consolidation. It could also represent a large neoplasm. There is associated adenopathy seen throughout the mediastinum as described above. 2. Cardiomegaly. Patient has a pacemaker in place. Austin Pino MD Objective Remarks GENERAL: NAD SKIN: Warm and dry. HEAD: Normocephalic. EYES: No scleral icterus. No injection or drainage. NECK: Supple, trachea midline. No JVD or lymphadenopathy. CARDIOVASCULAR: Regular rate and rhythm without murmurs, gallops, or rubs. RESPIRATORY: Breath sounds equal bilaterally. No accessory muscle use. GASTROINTESTINAL: Abdomen soft, non-tender, nondistended. MUSCULOSKELETAL: No cyanosis, or edema. BACK: Nontender without obvious deformity. No CVA tenderness. A/P Problem List: (1) Severe sepsis ICD Code: A41.9 Status: Acute (2) Toxic metabolic encephalopathy ICD Code: G92 Status: Resolved (3) PNA (pneumonia) ICD Code: J18.9 Status: Acute (4) COPD (chronic obstructive pulmonary disease) ICD Code: J44.9 Status: Chronic (5) ARF (acute renal failure) ICD Code: N17.9 Status: Acute (6) Hypothyroidism ICD Code: E03.9 Status: Acute (7) Non-ST elevation [place] (NSTEMI) ICD Code: I21.4 Status: Acute Assessment and Plan 86-year-old female with Severe sepsis: Resolved, on admission Heart rate over 90, WBC > 55761, < 4000 or > 10% bands, Lactate >2 and source due to pneumonia; status post Levaquin in ED, currently on Azactam and Levaquin IV. Follow blood, sputum culture as well as Legionella and strep pneumo antigen Community-acquired pneumonia: Chest x-ray with finding of Dense airspace consolidation at the left lung apex. Follow-up CT chest with finding of Large masslike area seen in the left upper lung. Flu A and B antigens negative. Continue Azactam Levaquin pending sputum culture. Maintain oxygen saturation above 92%, DuoNeb when necessary Toxic metabolic encephalopathy: Resolved. Head CT noted and reviewed by me with No acute intracranial abnormality is identified. Acute on chronic diastolic CHF exacerbation: BNP 1046 with elevated serial cardiac enzyme for which cardiology has been consulted. Currently on Lasix by mouth twice a day, CHF education and strict I's and O's. 2-D echo with EF 55-60 % Non-ST elevation [place] : Likely secondary to CHF exacerbation versus other. Cardiology consultation appreciated and plan for possible left heart catheterization today 11/24/16. Patient currently nothing by mouth and Coumadin on hold Acute on chronic kidney disease: Renal indices improving with creatinine today 0.95, however secondary to CHF exacerbation will continue to hold on IV fluid hydration. Monitor BUN/creatinine and avoid all nephrotoxic drugs Atrial fibrillation: Currently rate control on Cardizem, Coumadin, digoxin and monitor level. However Coumadin on hold. Monitor INR/PT History of breast cancer: Continue Arimidex COPD with oxygen dependent: No exacerbation, DuoNeb when necessary and keep oxygen saturation above 92% Hypothyroidism: Continue Synthroid DVT prophylaxis: Coumadin on hold/bilateral SCDs GI prophylaxis: PP Problem Qualifiers (1) PNA (pneumonia): Qualified Code: J18.1 - Pneumonia of left upper lobe due to infectious organism Aquilino Estrada MD Nov 24, 2016 09:49
[2016-11-24] MEDS ORDERED: LEVOFLOXACIN 750 MG PREMIX INJ 150 ML IV SCH (11:00)
[2016-11-24] MEDS: ONDANSETRON HCL 4 MG/2 ML VIAL IV PUSH PRN (11:28)
[2016-11-24] MEDS: AZTREONAM INJ 1,000 MG in SODIUM CHLORIDE 0.9% INJ 100 ML IV SCH ×2 (13:12→21:01)
--- NOTE | 2016-11-24 14:43 | PD.CARD.PN ---
Subjective Subjective Remarks patient feels much better Objective Vital Signs / I&O Vital Signs Date Time Temp Pulse Resp B/P Pulse Ox O2 Delivery O2 Flow Rate FiO2 11/24/16 12:13 93 Nasal Cannula 2.00 11/24/16 12:13 98.7 84 20 93/52 93 11/24/16 08:00 93 Nasal Cannula 2.00 11/24/16 08:00 98.3 79 16 99/55 92 11/24/16 08:00 74 11/24/16 06:26 97.3 65 20 116/77 90 11/24/16 06:07 91 Nasal Cannula 2.00 11/24/16 02:00 73 11/24/16 01:00 82 11/24/16 00:20 91 Nasal Cannula 2.00 11/24/16 00:19 97.3 87 20 102/67 91 11/24/16 00:00 78 11/23/16 23:00 78 11/23/16 22:00 74 11/23/16 21:16 Nasal Cannula 2.00 11/23/16 21:01 99.2 84 20 100/63 90 11/23/16 21:00 81 11/23/16 20:42 92 Nasal Cannula 2.00 11/23/16 20:00 87 11/23/16 19:00 79 11/23/16 17:02 98.8 88 22 95/50 95 Physical Exam GENERAL: SKIN: Warm and dry. HEAD: Normocephalic. EYES: No scleral icterus. No injection or drainage. NECK: Supple, trachea midline. No JVD or lymphadenopathy. CARDIOVASCULAR: Regular rate and rhythm without murmurs, gallops, or rubs. RESPIRATORY: Breath sounds equal bilaterally. No accessory muscle use. GASTROINTESTINAL: Abdomen soft, non-tender, nondistended. MUSCULOSKELETAL: No cyanosis, or edema. BACK: Nontender without obvious deformity. No CVA tenderness. Laboratory Laboratory Tests Test 11/24/16 03:26 White Blood Count 17.4 TH/MM3 Red Blood Count 3.06 MIL/MM3 Hemoglobin 10.3 GM/DL Hematocrit 30.7 % Mean Corpuscular Volume 100.2 FL Mean Corpuscular Hemoglobin 33.6 PG Mean Corpuscular Hemoglobin 33.5 % Concent Red Cell Distribution Width 16.8 % Platelet Count 149 TH/MM3 Mean Platelet Volume 8.2 FL Neutrophils (%) (Auto) 91.9 % Lymphocytes (%) (Auto) 2.7 % Monocytes (%) (Auto) 5.1 % Eosinophils (%) (Auto) 0.1 % Basophils (%) (Auto) 0.2 % Neutrophils # (Auto) 16.3 TH/MM3 Lymphocytes # (Auto) 0.5 TH/MM3 Monocytes # (Auto) 0.9 TH/MM3 Eosinophils # (Auto) 0.0 TH/MM3 Basophils # (Auto) 0.0 TH/MM3 CBC Comment DIFF FINAL Differential Comment Prothrombin Time 47.4 SEC Prothromb Time International 4.0 RATIO Ratio Sodium Level 134 MEQ/L Potassium Level 3.9 MEQ/L Chloride Level 100 MEQ/L Carbon Dioxide Level 24.7 MEQ/L Anion Gap 9 MEQ/L Blood Urea Nitrogen 39 MG/DL Creatinine 0.95 MG/DL Estimat Glomerular Filtration 56 ML/MIN Rate Random Glucose 123 MG/DL Calcium Level 8.7 MG/DL B-Type Natriuretic Peptide 396 PG/ML Assessment and Plan Problem List: (1) Acute respiratory failure (2) Hypoxia (3) Atrial fibrillation with RVR (4) Pre-diabetes (5) History of breast cancer (6) Anticoagulant long-term use (7) PNA (pneumonia) (8) COPD (chronic obstructive pulmonary disease) (9) Non-ST elevation [place] (NSTEMI) (10) Atrial fibrillation (11) Murmur, cardiac (12) DM (diabetes mellitus), type 2 (13) Lung mass (14) AI (aortic insufficiency) (15) (aortic stenosis) (16) MR (mitral regurgitation) Assessment and Plan 1.) AF/valvular heart disease/lung mass/nstemi - responding well to diuresis, f/ u bnp, inr=4.0, patient and son prefer medical management Problem Qualifiers (1) PNA (pneumonia): Qualified Code: J18.1 - Pneumonia of left upper lobe due to infectious organism Jignesh Sierra MD Nov 24, 2016 14:43
[2016-11-24] MEDS: SERTRALINE HCL 50 MG TAB PO SCH (21:02)
--- NOTE | 2016-11-24 21:26 | EKG ---
Date Performed: 11/22/2016 Time Performed: 14:41:52 PTAGE: 86 years EKG: Atrial fibrillation with rapid ventricular response Possible left ventricular hypertrophy E xtensive ST-T changes may be due to hypertrophy and/or ischemia Abnormal ECG PREVIOUS TRACING : 11/22/2016 09.02 Compared to prior tracing no significant change DOCTOR: Gordon Mendoza Interpretating Date/Time 11/24/2016 21:24:24
--- NOTE | 2016-11-24 21:57 | EKG ---
Date Performed: 11/22/2016 Time Performed: 09:02:50 PTAGE: 86 years EKG: Atrial fibrillation with rapid ventricular response LVH with secondary repolarization abnor mality Extensive ST-T changes may be due to hypertrophy and/or ischemia Abnormal ECG PREVIOUS TRACING : 04/15/2016 16.29 Compared to the previous tracing, rate has increased DOCTOR: Gordon Mendoza Interpretating Date/Time 11/24/2016 21:56:06
[2016-11-25] VITALS (13 sets, daily range): BP systolic 90–107; BP diastolic 49–72; PULSE 59–83; RESP 16–20; TEMP 97.2–98.6; O2SAT 91–95
[2016-11-25] MEDS: AZTREONAM INJ 1,000 MG in SODIUM CHLORIDE 0.9% INJ 100 ML IV SCH ×3 (05:03→21:12)
[2016-11-25 07:47] LABS: AUTOMATED NEUTROPHIL # 10.1 TH/MM3 (1.8-7.7); BASOPHIL % 0.3 % (0.0-2.0); EOSINOPHIL # 0.1 TH/MM3 (0-0.4); EOSINOPHIL % 0.9 % (0.0-4.0); LYMPH % 4.4 % (9.0-44.0); LYMPHOCYTE # 0.5 TH/MM3 (1.0-4.8); MEAN CELL VOLUME 99.8 FL (80.0-100.0); MEAN CORPUSCULAR HEMOGLOBIN 33.8 PG (27.0-34.0); MEAN CORPUSCULAR HGB CONC 33.9 % (32.0-36.0); MONO % 6.1 % (0.0-8.0); NEUT % 88.3 % (16.0-70.0); PLATELET COUNT 161 TH/MM3 (150-450); RED BLOOD COUNT 2.81 MIL/MM3 (4.00-5.30); RED CELL DISTRIBUTION WIDTH 16.7 % (11.6-17.2); WHITE BLOOD COUNT 11.4 TH/MM3 (4.0-11.0)
[2016-11-25 07:50] LABS: INTERNATIONAL NORMALIZED RATIO 3.1 RATIO; PROTHROMBIN TIME - PATIENT 36.5 SEC (9.8-11.6)
[2016-11-25 07:55] LABS: HEMO FLAGS AUTO DIFF
[2016-11-25 08:08] LABS: BICARBONATE 25.2 MEQ/L (21.0-32.0); POTASSIUM 4.3 MEQ/L (3.5-5.1)
[2016-11-25 09:27] LABS: BANDS 10 % (0-6); MYELOCYTES 1 % (0-0); NEUTROPHIL # MANUAL DIFF 11.1 TH/MM3 (1.8-7.7); POLYS (SEG NEUTROPHILS) 86 % (16-70); WBC DIFF SAMPLE 100
[2016-11-25 09:28] LABS: KERATOCYTES OCC (NORMAL); PLATELET ESTIMATE SMEAR NORMAL (NORMAL); PLATELET MORPHOLOGY NORMAL (NORMAL); SCAN/DIFF FINAL DIFF MANUAL
[2016-11-25] MEDS: LEVOTHYROXINE SODIUM 75 MCG TAB PO SCH (09:29)
[2016-11-25] MEDS: DIGOXIN 0.125 MG TAB PO SCH (09:29)
[2016-11-25] MEDS: POTASSIUM CHLORIDE 10 MEQ CONTROLLED RELEASE TAB PO SCH ×2 (09:29→21:11)
[2016-11-25] MEDS: DILTIAZEM-CD 240 MG CAP ER PO SCH (09:29)
[2016-11-25] MEDS: ANASTROZOLE 1 MG TAB PO SCH (09:29)
[2016-11-25] MEDS: SODIUM CHLORIDE 0.9% FLUSH 5 ML FLUSH IV FLUSH SCH ×2 (09:29→21:11)
[2016-11-25] MEDS: FUROSEMIDE 40 MG TAB PO SCH ×2 (09:30→21:11)
--- NOTE | 2016-11-25 10:54 | HHI.PR ---
Subjective Remarks Follow-up CHF/pneumonia 11/24/16-patient seen and examined, currently nothing by mouth pending left heart catheterization today. Denies any chest pain or shortness of breath. Requesting if she can be fed 11/25/16-patient seen and examined, reported improvement or shortness of breath and currently afebrile. She is asking when she can be discharged home. Objective Vitals Vital Signs Date Time Temp Pulse Resp B/P Pulse Ox O2 Delivery O2 Flow Rate FiO2 11/25/16 10:29 94 Nasal Cannula 4.00 11/25/16 08:00 98.5 83 20 103/72 91 11/25/16 07:00 68 11/25/16 06:00 75 11/25/16 05:00 74 11/25/16 05:00 98.2 74 16 106/53 95 11/25/16 04:00 70 11/25/16 03:00 72 11/25/16 02:00 74 11/25/16 01:00 70 11/25/16 00:00 98.3 80 18 101/49 95 11/25/16 00:00 64 11/24/16 23:00 60 11/24/16 22:00 62 11/24/16 21:08 93 Nasal Cannula 4.00 11/24/16 21:00 93 Nasal Cannula 3.00 11/24/16 21:00 80 11/24/16 20:00 98.5 79 16 109/59 93 11/24/16 20:00 73 11/24/16 18:00 76 11/24/16 17:01 80 11/24/16 16:00 93 Nasal Cannula 3.00 11/24/16 16:00 72 11/24/16 16:00 98.4 76 20 100/60 93 11/24/16 15:00 73 11/24/16 14:00 80 11/24/16 13:00 79 11/24/16 12:13 93 Nasal Cannula 2.00 11/24/16 12:13 98.7 84 20 93/52 93 11/24/16 12:00 78 11/24/16 11:00 79 I/O 11/24/16 11/24/16 11/24/16 11/25/16 11/25/16 11/25/16 07:00 15:00 23:00 07:00 15:00 23:00 Intake Total 800 ml 480 ml Output Total 650 ml 600 ml Balance 150 ml -120 ml Intake Oral 600 ml 240 ml IV Total 200 ml 240 ml Output Urine Total 650 ml 600 ml # Bowel Movements 1 Result Diagram: 11/25/16 0600 11/25/16 0600 Imaging Last Impressions Chest X-Ray 11/22/16 0857 Signed Impressions: Service Date/Time: Tuesday, November 22, 2016 09:11 - CONCLUSION: 1. Dense airspace consolidation at the left lung apex. In the appropriate clinical setting this could represent an infectious process. Alternatively, a pulmonary mass could have this appearance. 2. Stable enlargement of the cardiac silhouette with mild perihilar interstitial changes which could indicate mild interstitial edema. Austin Skelton MD Head CT 11/22/16 0000 Signed Impressions: Service Date/Time: Tuesday, November 22, 2016 09:46 - CONCLUSION: No acute intracranial abnormality is identified. Austin Skelton MD Chest CT 11/22/16 0000 Signed Impressions: Service Date/Time: Tuesday, November 22, 2016 15:06 - CONCLUSION: 1. Large masslike area seen in the left upper lung. This could represent a large area of consolidation. It could also represent a large neoplasm. There is associated adenopathy seen throughout the mediastinum as described above. 2. Cardiomegaly. Patient has a pacemaker in place. Austin Pino MD Objective Remarks GENERAL: NAD SKIN: Warm and dry. HEAD: Normocephalic. EYES: No scleral icterus. No injection or drainage. NECK: Supple, trachea midline. No JVD or lymphadenopathy. CARDIOVASCULAR: Regular rate and rhythm without murmurs, gallops, or rubs. RESPIRATORY: Breath sounds equal bilaterally. No accessory muscle use. GASTROINTESTINAL: Abdomen soft, non-tender, nondistended. MUSCULOSKELETAL: No cyanosis, or edema. BACK: Nontender without obvious deformity. No CVA tenderness. Procedures None A/P Problem List: (1) Severe sepsis ICD Code: A41.9 Status: Acute (2) Toxic metabolic encephalopathy ICD Code: G92 Status: Resolved (3) PNA (pneumonia) ICD Code: J18.9 Status: Acute (4) COPD (chronic obstructive pulmonary disease) ICD Code: J44.9 Status: Chronic (5) ARF (acute renal failure) ICD Code: N17.9 Status: Acute (6) Hypothyroidism ICD Code: E03.9 Status: Acute (7) Non-ST elevation [place] (NSTEMI) ICD Code: I21.4 Status: Acute Assessment and Plan 86-year-old female with Severe sepsis: Resolved, on admission Heart rate over 90, WBC > 96043, < 4000 or > 10% bands, Lactate >2 and source due to pneumonia; status post Levaquin in ED, currently on Azactam and Levaquin IV. Follow blood which are NTD, sputum culture as well as Legionella and strep pneumo antigen negative NTD Community-acquired pneumonia: Chest x-ray with finding of Dense airspace consolidation at the left lung apex. Follow-up CT chest with finding of Large masslike area seen in the left upper lung. Flu A and B antigens negative. Currently on Azactam and Levaquin ; as Blood and sputum culture NTD will de- escalate antibiotics and only continue with Levaquin IV 1 more day then switch to by mouth on 11/26/16. Maintain oxygen saturation above 92%, DuoNeb when necessary Large masslike in the left upper lung: Case CT finding noted. Case discussed with radiology 11/25/16 and recommend treatment for pneumonia and repeat CT thorax in 1-2 weeks. Although radiographic findings should improve in 4-6 weeks , however the patient currently has an infectious process he repeats CT thorax in 1-2 weeks should show improvement. If no improvement from the repeat CT thorax then will consider CT-guided biopsy versus consultation to pulmonary medicine for bronchoscopy. Toxic metabolic encephalopathy: Resolved. Head CT with No acute intracranial abnormality is identified. Acute on chronic diastolic CHF exacerbation: Responding well to current diuresis. Appreciate input from cardiology. Currently on Lasix by mouth twice a day, CHF education and strict I's and O's. 2-D echo with EF 55-60% Non-ST elevation [place] : Likely secondary to CHF exacerbation versus other. Appreciate input from cardiology however it appears that family and patient would like medical management instead.. Patient currently nothing by mouth and Coumadin on hold Acute on chronic kidney disease: Renal indices improving with creatinine today 0.77.secondary to CHF exacerbation will continue to hold on IV fluid hydration. Monitor BUN/creatinine and avoid all nephrotoxic drugs Atrial fibrillation: Currently rate control on Cardizem, Coumadin, digoxin and monitor level. However Coumadin on hold as INR 3.1 today. Monitor INR/PT History of breast cancer: Continue Arimidex COPD with oxygen dependent: No exacerbation, DuoNeb when necessary and keep oxygen saturation above 92% Hypothyroidism: Continue Synthroid DVT prophylaxis: Coumadin on hold/bilateral SCDs GI prophylaxis: PP Problem Qualifiers (1) PNA (pneumonia): Qualified Code: J18.1 - Pneumonia of left upper lobe due to infectious organism Aquilino Estrada MD Nov 25, 2016 10:54
--- NOTE | 2016-11-25 14:33 | PD.CARD.PN ---
Subjective Subjective Remarks alert in nad Objective Vital Signs / I&O Vital Signs Date Time Temp Pulse Resp B/P Pulse Ox O2 Delivery O2 Flow Rate FiO2 11/25/16 13:26 98.6 76 20 90/50 94 11/25/16 13:26 94 4.00 11/25/16 10:29 94 Nasal Cannula 4.00 11/25/16 08:00 98.5 83 20 103/72 91 11/25/16 08:00 91 Nasal Cannula 3.00 11/25/16 08:00 78 11/25/16 07:00 68 11/25/16 06:00 75 11/25/16 05:00 74 11/25/16 05:00 98.2 74 16 106/53 95 11/25/16 04:00 70 11/25/16 03:00 72 11/25/16 02:00 74 11/25/16 01:00 70 11/25/16 00:00 98.3 80 18 101/49 95 11/25/16 00:00 64 11/24/16 23:00 60 11/24/16 22:00 62 11/24/16 21:08 93 Nasal Cannula 4.00 11/24/16 21:00 93 Nasal Cannula 3.00 11/24/16 21:00 80 11/24/16 20:00 98.5 79 16 109/59 93 11/24/16 20:00 73 11/24/16 18:00 76 11/24/16 17:01 80 11/24/16 16:00 93 Nasal Cannula 3.00 11/24/16 16:00 72 11/24/16 16:00 98.4 76 20 100/60 93 11/24/16 15:00 73 I/O 11/24/16 11/24/16 11/24/16 11/25/16 11/25/16 11/25/16 07:00 15:00 23:00 07:00 15:00 23:00 Intake Total 800 ml 480 ml Output Total 650 ml 600 ml Balance 150 ml -120 ml Intake Oral 600 ml 240 ml IV Total 200 ml 240 ml Output Urine Total 650 ml 600 ml # Bowel Movements 1 Physical Exam GENERAL: SKIN: Warm and dry. HEAD: Normocephalic. EYES: No scleral icterus. No injection or drainage. NECK: Supple, trachea midline. No JVD or lymphadenopathy. CARDIOVASCULAR: Regular rate and rhythm without murmurs, gallops, or rubs. RESPIRATORY: Breath sounds equal bilaterally. No accessory muscle use. GASTROINTESTINAL: Abdomen soft, non-tender, nondistended. MUSCULOSKELETAL: No cyanosis, or edema. BACK: Nontender without obvious deformity. No CVA tenderness. Laboratory Laboratory Tests Test 11/25/16 06:00 White Blood Count 11.4 TH/MM3 Red Blood Count 2.81 MIL/MM3 Hemoglobin 9.5 GM/DL Hematocrit 28.0 % Mean Corpuscular Volume 99.8 FL Mean Corpuscular Hemoglobin 33.8 PG Mean Corpuscular Hemoglobin 33.9 % Concent Red Cell Distribution Width 16.7 % Platelet Count 161 TH/MM3 Mean Platelet Volume 8.8 FL Neutrophils (%) (Auto) 88.3 % Lymphocytes (%) (Auto) 4.4 % Monocytes (%) (Auto) 6.1 % Eosinophils (%) (Auto) 0.9 % Basophils (%) (Auto) 0.3 % Neutrophils # (Auto) 10.1 TH/MM3 Lymphocytes # (Auto) 0.5 TH/MM3 Monocytes # (Auto) 0.7 TH/MM3 Eosinophils # (Auto) 0.1 TH/MM3 Basophils # (Auto) 0.0 TH/MM3 CBC Comment AUTO DIFF Differential Total Cells 100 Counted Neutrophils % (Manual) 86 % Band Neutrophils % 10 % Lymphocytes % 1 % Monocytes % 2 % Neutrophils # (Manual) 11.1 TH/MM3 Myelocytes 1 % Differential Comment FINAL DIFF MANUAL Platelet Estimate NORMAL Platelet Morphology Comment NORMAL Keratocytes OCC Prothrombin Time 36.5 SEC Prothromb Time International 3.1 RATIO Ratio Sodium Level 136 MEQ/L Potassium Level 4.3 MEQ/L Chloride Level 102 MEQ/L Carbon Dioxide Level 25.2 MEQ/L Anion Gap 9 MEQ/L Blood Urea Nitrogen 30 MG/DL Creatinine 0.77 MG/DL Estimat Glomerular Filtration 71 ML/MIN Rate Random Glucose 96 MG/DL Calcium Level 8.3 MG/DL B-Type Natriuretic Peptide 410 PG/ML Assessment and Plan Problem List: (1) Acute respiratory failure (2) Hypoxia (3) Atrial fibrillation with RVR (4) Pre-diabetes (5) History of breast cancer (6) Anticoagulant long-term use (7) PNA (pneumonia) (8) COPD (chronic obstructive pulmonary disease) (9) Non-ST elevation [place] (NSTEMI) (10) Atrial fibrillation (11) Murmur, cardiac (12) DM (diabetes mellitus), type 2 (13) Lung mass (14) AI (aortic insufficiency) (15) (aortic stenosis) (16) MR (mitral regurgitation) Assessment and Plan 1.) AF/valvular heart disease/lung mass/nstemi - responding well to diuresis, f/ u bnp, inr=3.1, patient and son prefer medical management, ok to dc from cv standpoint. f/u 11/26/16 or 12/08/16; d/w patient and nurse at bedside Problem Qualifiers (1) PNA (pneumonia): Qualified Code: J18.1 - Pneumonia of left upper lobe due to infectious organism Jignesh Sierra MD Nov 25, 2016 14:33
[2016-11-25] MEDS: SERTRALINE HCL 50 MG TAB PO SCH (21:10)
[2016-11-26] VITALS: BP 94/60; PULSE 78; RESP 18; TEMP 98.4; O2SAT 93
[2016-11-26 04:00] VITALS: BP 96/52; PULSE 68; RESP 16; TEMP 98.2; O2SAT 96
[2016-11-26 06:53] LABS: INTERNATIONAL NORMALIZED RATIO 2.2 RATIO; PROTHROMBIN TIME - PATIENT 25.4 SEC (9.8-11.6)
--- NOTE | 2016-11-26 07:48 | HHI.PR ---
Subjective Remarks Follow up for CHF, pneumonia, possible lung mass. Objective Vitals Vital Signs Date Time Temp Pulse Resp B/P Pulse Ox O2 Delivery O2 Flow Rate FiO2 11/26/16 04:00 98.2 68 16 96/52 96 11/26/16 04:00 96 Nasal Cannula 3.00 11/26/16 00:00 98.4 78 18 94/60 93 11/26/16 00:00 93 Nasal Cannula 4.00 11/25/16 20:00 98.1 82 18 107/57 93 11/25/16 20:00 93 Nasal Cannula 4.00 11/25/16 20:00 82 11/25/16 16:00 97.2 59 18 105/63 91 11/25/16 16:00 91 4.00 11/25/16 13:26 98.6 76 20 90/50 94 11/25/16 13:26 94 4.00 11/25/16 10:29 94 Nasal Cannula 4.00 11/25/16 08:00 98.5 83 20 103/72 91 11/25/16 08:00 91 Nasal Cannula 3.00 11/25/16 08:00 78 I/O 11/25/16 11/25/16 11/25/16 11/26/16 11/26/16 11/26/16 07:00 15:00 23:00 07:00 15:00 23:00 Intake Total 480 ml 820 ml 830 ml Output Total 600 ml 750 ml 750 ml Balance -120 ml 70 ml 80 ml Intake Oral 240 ml 720 ml 480 ml IV Total 240 ml 100 ml 350 ml Output Urine Total 600 ml 750 ml 750 ml Result Diagram: 11/25/16 0600 11/25/16 0600 Imaging Last Impressions Chest X-Ray 11/22/16 0857 Signed Impressions: Service Date/Time: Tuesday, November 22, 2016 09:11 - CONCLUSION: 1. Dense airspace consolidation at the left lung apex. In the appropriate clinical setting this could represent an infectious process. Alternatively, a pulmonary mass could have this appearance. 2. Stable enlargement of the cardiac silhouette with mild perihilar interstitial changes which could indicate mild interstitial edema. Austin Skelton MD Head CT 11/22/16 0000 Signed Impressions: Service Date/Time: Tuesday, November 22, 2016 09:46 - CONCLUSION: No acute intracranial abnormality is identified. Austin Skelton MD Chest CT 11/22/16 0000 Signed Impressions: Service Date/Time: Tuesday, November 22, 2016 15:06 - CONCLUSION: 1. Large masslike area seen in the left upper lung. This could represent a large area of consolidation. It could also represent a large neoplasm. There is associated adenopathy seen throughout the mediastinum as described above. 2. Cardiomegaly. Patient has a pacemaker in place. Austin Pino MD Objective Remarks GENERAL: SKIN: Warm and dry. HEAD: Normocephalic. EYES: No scleral icterus. No injection or drainage. NECK: Supple, trachea midline. No JVD or lymphadenopathy. CARDIOVASCULAR: Regular rate and rhythm without murmurs, gallops, or rubs. RESPIRATORY: Breath sounds equal bilaterally. No accessory muscle use. GASTROINTESTINAL: Abdomen soft, non-tender, nondistended. MUSCULOSKELETAL: No cyanosis, or edema. BACK: Nontender without obvious deformity. No CVA tenderness. Procedures None A/P Problem List: (1) Severe sepsis ICD Code: A41.9 Status: Acute (2) Toxic metabolic encephalopathy ICD Code: G92 Status: Resolved (3) PNA (pneumonia) ICD Code: J18.9 Status: Acute (4) COPD (chronic obstructive pulmonary disease) ICD Code: J44.9 Status: Chronic (5) ARF (acute renal failure) ICD Code: N17.9 Status: Acute (6) Hypothyroidism ICD Code: E03.9 Status: Acute (7) Non-ST elevation [place] (NSTEMI) ICD Code: I21.4 Status: Acute Problem Qualifiers (1) PNA (pneumonia): Qualified Code: J18.1 - Pneumonia of left upper lobe due to infectious organism Kami Gupta DO Nov 26, 2016 07:48
[2016-11-26 08:00] VITALS: PULSE 72
[2016-11-26 08:04] VITALS: O2SAT 94
[2016-11-26] MEDS: DILTIAZEM-CD 240 MG CAP ER PO SCH (08:34)
[2016-11-26] MEDS: FUROSEMIDE 40 MG TAB PO SCH (08:35)
[2016-11-26] MEDS: DIGOXIN 0.125 MG TAB PO SCH (08:35)
[2016-11-26] MEDS: ANASTROZOLE 1 MG TAB PO SCH (08:35)
[2016-11-26] MEDS: POTASSIUM CHLORIDE 10 MEQ CONTROLLED RELEASE TAB PO SCH (08:35)
[2016-11-26] MEDS: LEVOTHYROXINE SODIUM 75 MCG TAB PO SCH (08:35)
[2016-11-26] MEDS: SODIUM CHLORIDE 0.9% FLUSH 5 ML FLUSH IV FLUSH SCH (08:36)
[2016-11-26 09:08] VITALS: BP 113/66; PULSE 67; RESP 19; TEMP 98.2; O2SAT 94
--- NOTE | 2016-11-26 09:59 | HHI.FF ---
Face to Face Verification Diagnosis: (1) PNA (pneumonia) (2) Lung mass (3) Hypoxia Physical Therapy Order: Evaluate and Treat, Improve ambulation, Strength and gait training Home Health Nursing Order: Medical education Signs/symptoms of disease process CHF education Oxygen administration education Nursing assessment with vital signs I have seen patient Fozia Rutledge on 11/26/16. My clinical findings support the need for the requested home health care services because: Ltd mobility - disease progression Patient has SOB Deconditioned w/ increased weakness Need for psychosocial assistance High risk of falls Infection w/ risk of complications I certify that my clinical findings support that this patient is homebound because: Impaired cognitive ability/safety Unsteady gait/balance Unsafe to leave home unassisted Need for psychosocial assistance Unable to use public transportation Kami Gupta DO Nov 26, 2016 9:59 am
[2016-11-26] MEDS ORDERED: LEVA750T PO (10:01)
--- NOTE | 2016-11-26 10:05 | HHI.DS ---
Discharge Summary Admission Date Nov 22, 2016 at 10:39 am Discharge Date: Nov 26, 2016 Admitting Diagnosis pneumonia, chf (1) Severe sepsis ICD Code: A41.9 (2) Toxic metabolic encephalopathy ICD Code: G92 (3) PNA (pneumonia) ICD Code: J18.9 Diagnosis: Principal (4) COPD (chronic obstructive pulmonary disease) ICD Code: J44.9 (5) ARF (acute renal failure) ICD Code: N17.9 (6) Hypothyroidism ICD Code: E03.9 (7) Non-ST elevation [place] (NSTEMI) ICD Code: I21.4 Procedures None Brief History - From Admission 86 year-old female with a history of of atrial fibrillation on Coumadin was brought to the emergency department for evaluation of 3 day history of febrile episode along with cough production. Apparently patient was seen by local urgent care on 11/21/16 and was diagnosed with pneumonia however discharge home. Early yesterday morning on 11/22/16, patient was found on the ground by her son will check on her and stated she was fine however confused. At that time she has no complaints. Patient denies any GI bleed or abdominal pain or current chest pain CBC/BMP: 11/25/16 0600 11/25/16 0600 Significant Findings Laboratory Tests Test 11/24/16 11/25/16 11/26/16 03:26 06:00 04:45 White Blood Count 17.4 TH/MM3 11.4 TH/MM3 (4.0-11.0) (4.0-11.0) Red Blood Count 3.06 MIL/MM3 2.81 MIL/MM3 (4.00-5.30) (4.00-5.30) Hemoglobin 10.3 GM/DL 9.5 GM/DL (11.6-15.3) (11.6-15.3) Hematocrit 30.7 % 28.0 % (35.0-46.0) (35.0-46.0) Mean Corpuscular Volume 100.2 FL (80.0-100.0) Platelet Count 149 TH/MM3 (150-450) Neutrophils (%) (Auto) 91.9 % 88.3 % (16.0-70.0) (16.0-70.0) Lymphocytes (%) (Auto) 2.7 % 4.4 % (9.0-44.0) (9.0-44.0) Neutrophils # (Auto) 16.3 TH/MM3 10.1 TH/MM3 (1.8-7.7) (1.8-7.7) Lymphocytes # (Auto) 0.5 TH/MM3 0.5 TH/MM3 (1.0-4.8) (1.0-4.8) Prothrombin Time 47.4 SEC 36.5 SEC 25.4 SEC (9.8-11.6) (9.8-11.6) (9.8-11.6) Sodium Level 134 MEQ/L (136-145) Blood Urea Nitrogen 39 MG/DL (7-18) 30 MG/DL (7-18) Estimat Glomerular Filtration 56 ML/MIN (>89) 71 ML/MIN (>89) Rate Random Glucose 123 MG/DL (74-106) B-Type Natriuretic Peptide 396 PG/ML 410 PG/ML (0-100) (0-100) Neutrophils % (Manual) 86 % (16-70) Band Neutrophils % 10 % (0-6) Lymphocytes % 1 % (9-44) Neutrophils # (Manual) 11.1 TH/MM3 (1.8-7.7) Myelocytes 1 % (0-0) Keratocytes OCC (NORMAL) Calcium Level 8.3 MG/DL (8.5-10.1) Imaging Last Impressions Chest X-Ray 11/22/16 0857 Signed Impressions: Service Date/Time: Tuesday, November 22, 2016 09:11 - CONCLUSION: 1. Dense airspace consolidation at the left lung apex. In the appropriate clinical setting this could represent an infectious process. Alternatively, a pulmonary mass could have this appearance. 2. Stable enlargement of the cardiac silhouette with mild perihilar interstitial changes which could indicate mild interstitial edema. Austin Skelton MD Head CT 11/22/16 0000 Signed Impressions: Service Date/Time: Tuesday, November 22, 2016 09:46 - CONCLUSION: No acute intracranial abnormality is identified. Austin Skelton MD Chest CT 11/22/16 0000 Signed Impressions: Service Date/Time: Tuesday, November 22, 2016 15:06 - CONCLUSION: 1. Large masslike area seen in the left upper lung. This could represent a large area of consolidation. It could also represent a large neoplasm. There is associated adenopathy seen throughout the mediastinum as described above. 2. Cardiomegaly. Patient has a pacemaker in place. Austin Pino MD PE at Discharge GENERAL: SKIN: Warm and dry. HEAD: Normocephalic. EYES: No scleral icterus. No injection or drainage. NECK: Supple, trachea midline. No JVD or lymphadenopathy. CARDIOVASCULAR: Regular rate and rhythm without murmurs, gallops, or rubs. RESPIRATORY: Breath sounds equal bilaterally. No accessory muscle use. GASTROINTESTINAL: Abdomen soft, non-tender, nondistended. MUSCULOSKELETAL: No cyanosis, or edema. BACK: Nontender without obvious deformity. No CVA tenderness. Pt update on day of discharge Patient is doing well. No acute concerns. Denies any CP, SOB, fever, chills. She is doing well on 2L of O2 via [place] - she uses 2-3 L at home as well. She wants to go home not SNF. Hospital Course Ms. Rutledge is a pleasant 86 year old female who was admitted with severe sepsis , pneumonia on 10/22/2017. Patient was started on aztreonam, levaquin. CXR showed dense airspace consolidation at the left lung apex. A follow up CT showed a large masslike lesion in the left upper lung. Patient improved with abx as well as other supportive treatments such as DuoNeb, O2. Radiology recommended repeat CT thorax in 1-2 weeks due to suspicious looking mass. I held extended conversation with patient and later with her great granddaughter regarding the need for CT chest. During this admission, patient's troponins were slightly elevated as well. However, patient and family decided not to undergo any invasive work up. Patient continued Cardizem, warfarin, digoxin for Afib. She was also continued on Arimidex due to history of breast cancer. On , after lengthy discussion, patient was discharged home with home health. Cardiology cleared for discharge. Pt Condition on Discharge: Good Discharge Disposition: Disch w/ Home Health Serv Discharge Time: > 30 minutes Discharge Instructions DIET: Follow Instructions for: Heart Healthy Diet Activities you can perform: Regular-No Restrictions Follow up Referrals: Cardiology - 12/08/16 with Jignesh Sierra MD PCP Follow-up - 1 Week New Orders: CT THORAX W CONTRAST (CHEST) - 2 Weeks New Medications: Levofloxacin (Levaquin) 750 Mg Tab 750 MG PO DAILY Infection #7 Ref 0 TAB Continued Medications: Anastrozole (Arimidex) 1 Mg Tab 1 MG PO DAILY Breast Cancer #30 Ref 0 TAB Digoxin (Digoxin) 0.125 Mg Tab 0.125 MG PO DAILY Regulate Heart Beat #30 Ref 0 TAB Diltiazem ER 24 HR (Cartia Xt) 240 Mg Caper 240 MG PO DAILY #30 Ref 0 CAP Furosemide (Furosemide) 40 Mg Tab 40 MG PO BID #60 Ref 0 TAB Levothyroxine (Levothyroxine) 75 Mcg Tab 75 MCG PO DAILY Thyroid #90 Ref 1 TAB Potassium Chloride ER (Klor-Con 10) 10 Meq Tab 20 MEQ PO BID Electrolyte Replacement #60 Ref 0 TAB Sertraline (Sertraline) 50 Mg Tab 50 MG PO DAILY #30 Ref 0 TAB Warfarin (Warfarin) 5 Mg Tab 5 MG PO DAILY Blood Clot Prevention #30 Ref 0 TAB Discontinued Medications: Nitrofurantoin Macrocrystal (Nitrofurantoin Macrocrystal) 50 Mg Cap 50 MG PO BID PRN prn Ref 0 CAP Kami Gupta DO Nov 26, 2016 10:05
[2016-11-26] MEDS ORDERED: LEVOFLOXACIN 750 MG PREMIX INJ 150 ML IV SCH (11:00)
[2016-11-27] MEDS ORDERED: BEDSIDE COMMODE1 MI1 (16:13)
[2016-12-23] MEDS ORDERED: NEBULIZER1 MI1 (09:12)
== END 2016-11-26 11:11 | disposition home health service (06) | DRG 871 ==
LOC: PHED 08:33 → PHEDA 10:39 → PHEDH 14:32 → HCIN 17:55
PROVIDERS: ADMIT Hospitalist; ATTEND Hospitalist
DX: R65.20 Severe sepsis without septic shock (principal); J18.9 Pneumonia, unspecified organism; I21.4 Non-ST elevation (NSTEMI) myocardial infarction; I50.33 Acute on chronic diastolic (congestive) heart failure; N17.9 Acute kidney failure, unspecified; G92 Toxic encephalopathy; E11.22 Type 2 diabetes mellitus with diabetic chronic kidney disease; D69.6 Thrombocytopenia, unspecified; J44.0 Chronic obstructive pulmonary disease with (acute) lower respiratory infection; E87.1 Hypo-osmolality and hyponatremia; I48.91 Unspecified atrial fibrillation; E03.9 Hypothyroidism, unspecified; I35.0 Nonrheumatic aortic (valve) stenosis; N18.9 Chronic kidney disease, unspecified; I27.2 Other secondary pulmonary hypertension; D64.9 Anemia, unspecified; Z85.3 Personal history of malignant neoplasm of breast; Z95.0 Presence of cardiac pacemaker; Z92.3 Personal history of irradiation; M19.90 Unspecified osteoarthritis, unspecified site; Z79.01 Long term (current) use of anticoagulants; Z99.81 Dependence on supplemental oxygen
CPT/HCPCS: 70450; 71010; 71250; 80048; 80053; 80162; 81001; 82550; 82552; 83605; 83880; 84484; 85007; 85025; 85027; 85610; 85730; 87040; 87070; 87086; 87205; 87449; 87804; 93005; 93306; 96365; J1956; J2405; P9612

== ENCOUNTER 2016-12-12 19:44 | Emergency (ER) | payer MEDICARE ==
[~2016-12-12] VITALS: Ht 167.6 cm; Wt 56.5 kg
[~2016-12-12 19:44] MED LIST changes: +BEDSIDE COMMODE1 MI1; +CART240C PO; -CHOLCRY; -DILT1TAB4 PO; +LEVA750T PO; -NITR1CAP37 PO
[2016-12-12 19:45] VITALS: BP 121/62; PULSE 80; RESP 16; TEMP 98.9; O2SAT 90
[2016-12-23] MEDS ORDERED: NEBULIZER1 MI1 (09:12)
== END 2016-12-12 23:58 | disposition left against medical advice (07) ==
LOC: NED 19:44
DX: R50.9 Fever, unspecified (principal); Z53.21 Procedure and treatment not carried out due to patient leaving prior to being seen by health care provider
CPT/HCPCS: 99281

== ENCOUNTER 2016-12-12 22:08 | Inpatient (IN) | payer MEDICARE ==
[~2016-12-12] VITALS: Ht 167.6 cm; Wt 61.3 kg
[2016-12-12 22:33] VITALS: BP 100/65; PULSE 115; RESP 20; TEMP 99; O2SAT 94
[2016-12-12 23:45] VITALS: TEMP 99.6
[2016-12-13] VITALS (12 sets, daily range): BP systolic 83–133; BP diastolic 49–78; PULSE 73–89; RESP 16–22; TEMP 96.5–101.2; O2SAT 86–96
--- NOTE | 2016-12-13 01:18 | PD ---
HPI Chief Complaint: Fever Time Seen by Provider: 01:15 Travel History International Travel<30 days: No Contact w/Intl Traveler<30days: No Traveled to known affect area: No History of Present Illness HPI The patient is an 86-year-old female that complains of fever for about 3 days. She denies any cough, chest pain, sore throat, dysuria, frequency, urgency, nausea, vomiting or diarrhea. She does have a history of frequent urinary tract infections but she has no urinary symptoms this time. She just completed a course of antibiotics and in the hospital for pneumonia. She was admitted on 22 November for 5 days and then was on antibiotics at home for 7 days. The fever started several days after she completed the antibiotics. She does not smoke. The patient has not seen a linux system administrator and does not have one. Her resistance brazer is in [place]. The patient states she has been short of breath and did not feel right ever since she was discharged from the hospital. PFSH Past Medical History Hx Anticoagulant Therapy: Yes Arthritis: Yes Asthma: No Atrial Fibrillation: Yes Autoimmune Disease: No Blood Disorders: No Anxiety: No Depression: Yes Heart Rhythm Problems: Yes Cancer: Yes (CASH BREAST) Cardiac Catheterization: Yes Cardiovascular Problems: Yes High Cholesterol: No Chemotherapy: No Chest Pain: No Congestive Heart Failure: Yes COPD: Yes Cerebrovascular Accident: No Diabetes: Yes (type 2 ) Diminished Hearing: No Endocrine: Yes GERD: No Genitourinary: Yes Hiatal Hernia: No Hypertension: Yes Immune Disorder: No Implanted Vascular Access Dvce: Yes (PACER) Kidney Stones: No Musculoskeletal: Yes Neurologic: No Psychiatric: No Reproductive: No Respiratory: Yes (COPD WARES 2 LT O2 24/) Immunizations Current: Yes Radiation Therapy: Yes Renal Failure: No Sleep Apnea: Yes Thyroid Disease: Yes (THYROIDECTOMY) Ulcer: No Influenza Vaccination: Yes Menopausal: Yes Past Surgical History Abdominal Surgery: Yes (APPENDECTOMY) AICD: No Appendectomy: Yes Arteriovenous Shunt: No Cardiac Surgery: Yes (PACER) Ear Surgery: No Endocrine Surgery: Yes (GOITER REMOVED) Eye Surgery: No Genitourinary Surgery: No Gynecologic Surgery: Yes (CASH LUMPECTOMY) Hysterectomy: No Insulin Pump: No Joint Replacement: Yes (RIGHT KNEE) Oral Surgery: No Pacemaker: Yes Thoracic Surgery: No Tonsillectomy: Yes 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) Social History Alcohol Use: No Tobacco Use: No (QUIT 40 YRS AGO) Substance Use: No Allergies-Medications (Allergen,Severity, Reaction): Coded Allergies: Codeine (Verified Allergy, Severe, Hallucinations, 12/13/16) Penicillin (Verified Allergy, Unknown, HIVES, 12/13/16) Reported Meds & Prescriptions Reported Meds & Active Scripts Active Bedside Commode (Device) 1 Mis Mis 1 Ea .ROUTE DIRECTED Levothyroxine (Levothyroxine Sodium) 75 Mcg Tab 75 Mcg PO DAILY Reported Cartia Xt (Diltiazem ER 24 HR) 240 Mg Caper 240 Mg PO DAILY Warfarin 5 Mg Tab 4 Mg PO DAILY Klor-Con 10 (Potassium Chloride) 10 Meq Tab 20 Meq PO BID Arimidex (Anastrozole) 1 Mg Tab 1 Mg PO DAILY Sertraline (Sertraline HCl) 50 Mg Tab 50 Mg PO DAILY Oxygen tank (Oxygen) 1 Ea Tank 2 Liter [employer] CONTINUOUS Oxygen Concentrator Portable Gaseous 2 L/min via Nasal Cannula Continuous For 99 months Furosemide 40 Mg Tab 40 Mg PO DAILY Digoxin 0.125 Mg Tab 0.125 Mg PO DAILY Review of Systems Except as stated in HPI: all other systems reviewed are Neg Physical Exam Narrative GENERAL: The patient is alert, oriented 3 in no respiratory distress and no other distress. Her heart rate is 1:15 and temperature 99.0. The rest of her vital signs are normal. SKIN: Warm and dry. HEAD: Atraumatic. Normocephalic. EYES: Pupils equal and round. No scleral icterus. No injection or drainage. ENT: No nasal bleeding or discharge. Mucous membranes pink and moist. NECK: Trachea midline. No JVD. CARDIOVASCULAR: Regular rate and rhythm. No murmur appreciated. RESPIRATORY: No accessory muscle use. Clear to auscultation. Breath sounds equal bilaterally. GASTROINTESTINAL: Abdomen soft, non-tender, nondistended. Hepatic and splenic margins not palpable. MUSCULOSKELETAL: No obvious deformities. No clubbing. No cyanosis. No edema. NEUROLOGICAL: Awake and alert. No obvious cranial nerve deficits. Motor grossly within normal limits. Normal speech. PSYCHIATRIC: Appropriate mood and affect; insight and judgment normal. Data Data Last Documented VS Vital Signs Date Time Temp Pulse Resp B/P Pulse Ox O2 Delivery O2 Flow Rate FiO2 12/13/16 03:30 100.0 86 20 124/56 94 Nasal Cannula 2 Orders Complete Blood Count With Diff (12/13/16 01:18) Comprehensive Metabolic Panel (12/13/16 01:18) Blood Culture (12/13/16 01:18) Urinalysis - C+S If Indicated (12/13/16 01:18) Chest, Pa & Lat (12/13/16 01:19) B-Type Natriuretic Peptide (12/13/16 02:38) Prothrombin Time / Inr (Pt) (12/13/16 02:44) Ckmb (Isoenzyme) Profile (12/13/16 02:20) Magnesium (Mg) (12/13/16 02:20) Troponin I (12/13/16 02:20) Acetaminophen (Tylenol) (12/13/16 03:00) Labs Laboratory Tests Test 12/13/16 12/13/16 12/13/16 02:20 02:30 03:20 White Blood Count 6.8 TH/MM3 Red Blood Count 3.53 MIL/MM3 Hemoglobin 11.6 GM/DL Hematocrit 35.3 % Mean Corpuscular Volume 99.9 FL Mean Corpuscular Hemoglobin 32.8 PG Mean Corpuscular Hemoglobin 32.9 % Concent Red Cell Distribution Width 17.6 % Platelet Count 197 TH/MM3 Mean Platelet Volume 7.3 FL Neutrophils (%) (Auto) 66.5 % Lymphocytes (%) (Auto) 17.0 % Monocytes (%) (Auto) 9.2 % Eosinophils (%) (Auto) 6.2 % Basophils (%) (Auto) 1.1 % Neutrophils # (Auto) 4.5 TH/MM3 Lymphocytes # (Auto) 1.2 TH/MM3 Monocytes # (Auto) 0.6 TH/MM3 Eosinophils # (Auto) 0.4 TH/MM3 Basophils # (Auto) 0.1 TH/MM3 CBC Comment DIFF FINAL Differential Comment Sodium Level 139 MEQ/L Potassium Level 4.8 MEQ/L Chloride Level 103 MEQ/L Carbon Dioxide Level 26.2 MEQ/L Anion Gap 10 MEQ/L Blood Urea Nitrogen 18 MG/DL Creatinine 0.84 MG/DL Estimat Glomerular Filtration 65 ML/MIN Rate Random Glucose 114 MG/DL Calcium Level 9.0 MG/DL Magnesium Level 2.4 MG/DL Total Bilirubin 1.4 MG/DL Aspartate Amino Transf 59 U/L (AST/SGOT) Alanine Aminotransferase 35 U/L (ALT/SGPT) Alkaline Phosphatase 72 U/L Total Creatine Kinase 63 U/L Troponin I 0.02 NG/ML Total Protein 7.9 GM/DL Albumin 3.8 GM/DL Urine Color YELLOW Urine Turbidity CLEAR Urine pH 5.5 Urine Specific [place] 1.025 Urine Protein 30 mg/dL Urine Glucose (UA) NEG mg/dL Urine Ketones NEG mg/dL Urine Occult Blood LARGE Urine Nitrite NEG Urine Bilirubin NEG Urine Leukocyte Esterase NEG Urine RBC 20-24 /hpf Urine WBC 0-2 /hpf Urine Squamous Epithelial 0-5 /hpf Cells Urine Bacteria NONE /hpf Microscopic Urinalysis Comment CULT NOT INDICATED B-Type Natriuretic Peptide 281 PG/ML Prothrombin Time 30.1 SEC Prothromb Time International 2.6 RATIO Ratio MDM Medical Decision Making Medical Screen Exam Complete: Yes Emergency Medical Condition: Yes Medical Record Reviewed: Yes Interpretation(s) The chest x-ray shows mild to moderate cardiomegaly and bilateral perihilar infiltrates. There is persistent but improving consolidation in the left upper lobe. A tiny left pleural effusion is noted and no pneumothorax is seen. Differential Diagnosis Pneumonia, sepsis, urinary tract infection, pyelonephritis, electrolyte disorder , viral syndrome Narrative Course The patient appears to have a slowly resolving pneumonia. She also has congestive heart failure. This may also be improving. The patient still has a fever however and she still feels short of breath and generally weak. The patient has not seen a linux system administrator yet and we will bring her in for 23 hour observation for reevaluation and consultation with the linux system administrator. Also we may put her on another course of antibiotics. Physician Communication Physician Communication I discussed the patient with Dr. Dempsey. Diagnosis Primary Impression: PNA (pneumonia) Additional Impression: Congestive heart failure (CHF) Admitting Information Admitting Physician Requests: Observation Tyshawn Huerta MD Dec 13, 2016 01:17
--- NOTE | 2016-12-13 02:24 | RADHPO ---
EXAM DATE/TIME: 12/13/2016 01:44 [facility] COMPARISON: CT THORAX W/O CONTRAST, November 22, 2016, 15:06. CHEST SINGLE AP, November 22, 2016, 9:11. INDICATIONS : Fever. MEDICAL HISTORY : Hypertension. Congestive heart failure. Carcinoma, breast. AFIB, COPD, Sleep apnea, Lumpectomy, A rthritis, Diabetes, Anemia SURGICAL HISTORY : Total knee replacement, right. Tonsillectomy. Cholecystectomy. Thyroidectomy, Heart cath, Pacemaker, Appendectomy ENCOUNTER: Initial ACUITY: 1 day PAIN SCORE: 0/10 LOCATION: Bilateral chest FINDINGS: Mild to moderate cardiomegaly and bilateral perihilar infiltrates are noted. There is persistent but improving consolidation in the left upper lobe. Tiny left pleural effusion noted. No pneumothorax see n. Left subclavian transvenous cardiac pacer with a single lead again noted. CONCLUSION: 1. Increased bilateral perihilar infiltrates, some of which may be on the basis of failure. 2. Improved but not resolved left upper lobe pneumonia. 3. Trace left pleural effusion. 4. Mild to moderate cardiomegaly again noted. Austin Dotson MD on December 13, 2016 at 2:21 Board Certified Radiologist. This report was verified electronically.
[2016-12-13 02:31] LABS: AUTOMATED NEUTROPHIL # 4.5 TH/MM3 (1.8-7.7); BASOPHIL # 0.1 TH/MM3 (0-0.2); BASOPHIL % 1.1 % (0.0-2.0); EOSINOPHIL # 0.4 TH/MM3 (0-0.4); EOSINOPHIL % 6.2 % (0.0-4.0); HEMATOCRIT 35.3 % (35.0-46.0); HEMO FLAGS DIFF FINAL; LYMPHOCYTE # 1.2 TH/MM3 (1.0-4.8); MEAN CELL VOLUME 99.9 FL (80.0-100.0); MEAN CORPUSCULAR HEMOGLOBIN 32.8 PG (27.0-34.0); MEAN CORPUSCULAR HGB CONC 32.9 % (32.0-36.0); MONO % 9.2 % (0.0-8.0); NEUT % 66.5 % (16.0-70.0); PLATELET COUNT 197 TH/MM3 (150-450); RED BLOOD COUNT 3.53 MIL/MM3 (4.00-5.30); RED CELL DISTRIBUTION WIDTH 17.6 % (11.6-17.2); WHITE BLOOD COUNT 6.8 TH/MM3 (4.0-11.0)
[2016-12-13 02:36] LABS: CHLORIDE 103 MEQ/L (98-107); SODIUM (NA) 139 MEQ/L (136-145)
[2016-12-13 02:40] LABS: ANION GAP 10 MEQ/L (5-15); BICARBONATE 26.2 MEQ/L (21.0-32.0); BLOOD UREA NITROGEN 18 MG/DL (7-18)
[2016-12-13 02:43] LABS: ALT (GPT) 35 U/L (10-53); AST (GOT) 59 U/L (15-37); GLOMERULAR FILTRATION RATE 65 ML/MIN (>89); POTASSIUM 4.8 MEQ/L (3.5-5.1)
[2016-12-13 02:44] LABS: TOTAL BILIRUBIN ADULT 1.4 MG/DL (0.2-1.0)
[2016-12-13 02:46] LABS: ALKALINE PHOSPHATASE 72 U/L (45-117)
[2016-12-13 02:51] LABS: MAGNESIUM 2.4 MG/DL (1.5-2.5)
[2016-12-13 02:52] LABS: BLOOD, URINE LARGE (NEG); GLUCOSE,URINE NEG (NEG); KETONE, URINE NEG (NEG); NITRITE,URINE NEG (NEG); PH, URINE 5.5 (5.0-8.5)
[2016-12-13 02:53] LABS: URINE COLOR YELLOW (YELLW/STRAW)
[2016-12-13 02:59] LABS: WBC, URINE 0-2 /hpf (0-5)
[2016-12-13 03:00] LABS: COMMENT (UR) CULT NOT INDICATED; CULTURE IF INDICATED CULT NOT INDICATED; SQUAMOUS EPITHELIAL CELL URINE 0-5 /hpf (0-5)
[2016-12-13] MEDS ORDERED: ACETAMINOPHEN 325 MG TAB PO ONE (03:00)
[2016-12-13 03:01] LABS: CREATINE KINASE 63 U/L (26-192)
[2016-12-13 03:37] LABS: INTERNATIONAL NORMALIZED RATIO 2.6 RATIO; PROTHROMBIN TIME - PATIENT 30.1 SEC (9.8-11.6)
[2016-12-13] MEDS ORDERED: SODIUM CHLOR 0.9% 1000 ML INJ 1,000 ML IV SCH (04:16)
[2016-12-13] MEDS ORDERED: MORPHINE SULFATE 4 MG/ML INJ IV PUSH PRN ×2 (04:30)
[2016-12-13] MEDS ORDERED: MAGNESIUM HYDROXIDE SUSP 30 ML CUP PO PRN (04:30)
[2016-12-13] MEDS ORDERED: NALOXONE HCL 0.4 MG/ML AMP IV PRN (04:30)
[2016-12-13] MEDS ORDERED: SENNOSIDES 8.6 MG TAB PO PRN (04:30)
[2016-12-13] MEDS ORDERED: ONDANSETRON HCL 4 MG/2 ML VIAL IVP PRN (04:30)
[2016-12-13] MEDS ORDERED: BISACODYL 10 MG SUPP PR PRN (04:30)
--- NOTE | 2016-12-13 04:51 | RADHPO ---
EXAM DATE/TIME: 12/13/2016 04:20 [facility] COMPARISON: CHEST PA & LAT, December 13, 2016, 1:44. CT THORAX W/O CONTRAST, November 22, 2016, 15:06. INDICATIONS : Fever. Recent history of pneumonia. RADIATION DOSE: 9.25 CTDIvol (mGy) MEDICAL HISTORY : Congestive hearrt failure. Chronic obstructive pulmonary disease. Diabetes mellitus type 2. SURGICAL HISTORY : Tonsillectomy. Pacemaker. ENCOUNTER: Initial ACUITY: 1 day PAIN SCALE: 0/10 LOCATION: chest TECHNIQUE: Volumetric scanning of the chest was performed. Using automated exposure control and adjustment of t he mA and/or kV according to patient size, radiation dose was kept as low as reasonably achievable to obtain optimal diagnostic quality images. FINDINGS: Compared to the prior CT, the left upper lobe infiltrate is modestly improved in both size and densit y in the interim. It is considerably less mass like in the interim. However, widespread patchy somewh at nodular air space opacities have developed throughout essentially the entire right and left lungs. There are also small bilateral pleural effusions, new on the right and larger on the left. No pneumo thorax. There mediastinal lymph nodes again noted and measure up to 2 cm in size. Most appear millimeter or 2 slightly larger in the interim. Panchamber enlargement of the heart again noted, especially the left atrium. Patient has a left subclavian transvenous cardiac pacer. CONCLUSION: 1. Widespread patchy airspace disease has developed of both lungs, presumably infectious. 2. The dense consolidation of the left upper lobe has improved in the interim. 3. Mildly enlarged mediastinal lymph nodes again seen, nonspecific but presumably reactive. 4. Small bilateral pleural effusions, new on the right and larger on the left. 5. Enlarged heart. Austin Dotson MD on December 13, 2016 at 4:44 Board Certified Radiologist. This report was verified electronically.
[2016-12-13] MEDS ORDERED: HEPARIN SODIUM - SQ 10,000 UNITS/ML VIAL SQ SCH (06:00)
[2016-12-13] MEDS: DOCUSATE SODIUM 100 MG CAP PO SCH ×2 (08:54→20:44)
[2016-12-13] MEDS ORDERED: GLUCAGON 1 MG/ML VIAL OTHER PRN (13:00)
[2016-12-13] MEDS ORDERED: DEXTROSE 50% IN WATER 50 ML VIAL(D50) IV PUSH PRN (13:00)
[2016-12-13] MEDS ORDERED: Vancomycin Consult Pharmacy 1 EA OTHER SCH (13:00)
--- NOTE | 2016-12-13 13:05 | HHI.HP ---
HPI Service [facility] Primary Care Physician Nadya Cuello MD Admission Diagnosis fever, pneumonia, shortness of breath Diagnoses: Chief Complaint: fever, sob Travel History International Travel<30 Days: No Contact w/Intl Traveler <30 Da: No Traveled to Known Affected Are: No Sepsis Criteria SIRS Criteria (2 or more): Heart rate over 90, RR > 20 or PaCO2 < 32 Severe Sepsis (+one): Hypotension Criteria Outcome: Meets SIRS criteria History of Present Illness Patient is a 85-year-old female with multiple valvular issues was recently admitted to the hospital for treatment of pneumonia. Patient says that she did complete her antibiotics but immediately began feeling worse. She had increased shortness of breath, dyspnea, fevers and chills and pelvic and felt very poorly. Patient does have multiple valvular issues and has been follow-up with her shipping hand Dr. in [place]. Here she has been tachycardic, tachypneic and appears clinically ill. The patient been admitted to the hospital for further evaluation and treatment. She denies any nausea or vomiting or chest pain. She has significant murmurs on exam which are concerning but chronic. Patient at this time has been started on appear antibiotics for possible endocarditis versus pneumonia. Recently she had pneumonia in the left upper lung which appears improved on repeat CT scanning however there is still quite a few infiltrates located in the pulmonary area as well as some adenopathy. She does have history of breast cancer and has been on Arimidex for this. She recently had a non-ST elevation WI and was recommended for heart catheterization however declined this initiative on given her known cardiac history. At this time the patient appears ill and will need further inpatient services Review of Systems Constitutional: COMPLAINS OF: Fatigue, Fever, Chills, DENIES: Diaphoretic episodes, Weight gain, Weight loss, Dizziness, Change in appetite, Night Sweats Endocrine: DENIES: Abnorml menstrual pattern, Heat/cold intolerance, Polydipsia , Polyuria, Polyphagia Eyes: DENIES: Blurred vision, Diplopia, Eye inflammation, Eye pain, Vision loss , Photosensitivity, Double Vision Ears, nose, mouth, throat: DENIES: Tinnitus, Hearing loss, Vertigo, Nasal discharge, Oral lesions, Throat pain, Hoarseness, Ear Pain, Running Nose, Epistaxis, Sinus Pain, Toothache, Odynophagia Gastrointestinal: DENIES: Abdominal pain, Black stools, Bloody stools, Constipation, Diarrhea, Nausea, Vomiting, Difficulty Swallowing, Anorexia Genitourinary: DENIES: Abnormal vaginal bleeding, Dysmenorrhea, Dyspareunia, Sexual dysfunction, Urinary frequency, Urinary incontinence, Urgency, Hematuria , Dysuria, Nocturia, Vaginal discharge Musculoskeletal: DENIES: Joint pain, Muscle aches, Stiffness, Joint Swelling, Back pain, Neck pain Integumentary: DENIES: Abnormal pigmentation, Pruritus, Rash, Nail changes, Breast masses, Breast skin changes, Nipple discharge Hematologic/lymphatic: DENIES: Bruising, Lymphadenopathy Neurologic: DENIES: Abnormal gait, Headache, Localized weakness, Paresthesias, Seizures, Speech Problems, Tremor, Poor Balance Psychiatric: DENIES: Anxiety, Confusion, Mood changes, Depression, Hallucinations, Agitation, Suicidal Ideation, Homicidal Ideation, Delusions Past Family Social History Past Medical History rheumatic fever MV regurgitation Severe TR Pulm HTN, severe Valvular AFIB Past Surgical History appy breast ca lumpectomy thyroid goiter surg Reported Medications reviewed in the EMR Allergies: Coded Allergies: Codeine (Verified Allergy, Severe, Hallucinations, 12/13/16) Penicillin (Verified Allergy, Unknown, HIVES, 12/13/16) Active Ordered Medications reviewed in the emr Family History htn Social History lives independently no tobacco or etoh Physical Exam Vital Signs Vital Signs Date Time Temp Pulse Resp B/P Pulse Ox O2 Delivery O2 Flow Rate FiO2 12/13/16 07:45 96.5 82 22 133/78 91 12/13/16 07:05 98.5 82 16 109/49 94 Nasal Cannula 2 12/13/16 07:05 82 16 94 Nasal Cannula 2 12/13/16 04:51 95 Nasal Cannula 2.00 12/13/16 04:40 99.8 86 18 114/60 96 Nasal Cannula 2 12/13/16 03:30 100.0 86 20 124/56 94 Nasal Cannula 2 12/13/16 02:20 89 20 128/61 95 Nasal Cannula 2 12/13/16 00:11 Nasal Cannula 2 12/12/16 23:45 99.6 12/12/16 22:33 99.0 115 20 100/65 94 2 Physical Exam GENERAL: This is a well-nourished, well-developed patient, in no apparent distress. SKIN: No rashes, ecchymoses or lesions. Cool and dry. HEAD: Atraumatic. Normocephalic. No temporal or scalp tenderness. EYES: Pupils equal round and reactive. Extraocular motions intact. No scleral icterus. No injection or drainage. ENT: Nose without bleeding, purulent drainage or septal hematoma. Throat without erythema, tonsillar hypertrophy or exudate. Uvula midline. Airway patent. NECK: Trachea midline. No JVD or lymphadenopathy. Supple, nontender, no meningeal signs. CARDIOVASCULAR: Regular rate and rhythm with systolic, diastolic murmurs, gallops, or rubs. RESPIRATORY: Clear to auscultation. Breath sounds equal bilaterally. No wheezes , rales, or rhonchi. GASTROINTESTINAL: Abdomen soft, non-tender, nondistended. No hepato-splenomegaly , or palpable masses. No guarding. MUSCULOSKELETAL: Extremities without clubbing, cyanosis, or edema. No joint tenderness, effusion, or edema noted. No calf tenderness. Negative Homans sign bilaterally. NEUROLOGICAL: Awake and alert. Cranial nerves II through XII intact. Motor and sensory grossly within normal limits. Five out of 5 muscle strength in all muscle groups. Normal speech. Laboratory Laboratory Tests Test 12/13/16 12/13/16 12/13/16 02:20 02:30 03:20 White Blood Count 6.8 Red Blood Count 3.53 Hemoglobin 11.6 Hematocrit 35.3 Mean Corpuscular Volume 99.9 Mean Corpuscular Hemoglobin 32.8 Mean Corpuscular Hemoglobin 32.9 Concent Red Cell Distribution Width 17.6 Platelet Count 197 Mean Platelet Volume 7.3 Neutrophils (%) (Auto) 66.5 Lymphocytes (%) (Auto) 17.0 Monocytes (%) (Auto) 9.2 Eosinophils (%) (Auto) 6.2 Basophils (%) (Auto) 1.1 Neutrophils # (Auto) 4.5 Lymphocytes # (Auto) 1.2 Monocytes # (Auto) 0.6 Eosinophils # (Auto) 0.4 Basophils # (Auto) 0.1 CBC Comment DIFF FINAL Differential Comment Sodium Level 139 Potassium Level 4.8 Chloride Level 103 Carbon Dioxide Level 26.2 Anion Gap 10 Blood Urea Nitrogen 18 Creatinine 0.84 Estimat Glomerular Filtration 65 Rate Random Glucose 114 Calcium Level 9.0 Magnesium Level 2.4 Total Bilirubin 1.4 Aspartate Amino Transf 59 (AST/SGOT) Alanine Aminotransferase 35 (ALT/SGPT) Alkaline Phosphatase 72 Total Creatine Kinase 63 Troponin I 0.02 Total Protein 7.9 Albumin 3.8 Urine Color YELLOW Urine Turbidity CLEAR Urine pH 5.5 Urine Specific [place] 1.025 Urine Protein 30 Urine Glucose (UA) NEG Urine Ketones NEG Urine Occult Blood LARGE Urine Nitrite NEG Urine Bilirubin NEG Urine Leukocyte Esterase NEG Urine RBC 20-24 Urine WBC 0-2 Urine Squamous Epithelial 0-5 Cells Urine Bacteria NONE Microscopic Urinalysis Comment CULT NOT INDICATED B-Type Natriuretic Peptide 281 Prothrombin Time 30.1 Prothromb Time International 2.6 Ratio Date/Time Procedure Status Source Growth 12/13/16 02:20 Aerobic Blood Culture Received Blood Peripheral Pending 12/13/16 02:20 Anaerobic Blood Culture Received Blood Peripheral Pending Result Diagram: 12/13/1621912/13/16 022 Imaging Last Impressions Chest CT 12/13/160 Signed Impressions: Service Date/Time: Tuesday, December 13, 2016 04:20 - CONCLUSION: 1. Widespread patchy airspace disease has developed of both lungs, presumably infectious. 2. The dense consolidation of the left upper lobe has improved in the interim. 3. Mildly enlarged mediastinal lymph nodes again seen, nonspecific but presumably reactive. 4. Small bilateral pleural effusions, new on the right and larger on the left. 5. Enlarged heart. Austin Dotson MD Chest X-Ray 12/13/16 0119 Signed Impressions: Service Date/Time: Tuesday, December 13, 2016 01:44 - CONCLUSION: 1. Increased bilateral perihilar infiltrates, some of which may be on the basis of failure. 2. Improved but not resolved left upper lobe pneumonia. 3. Trace left pleural effusion. 4. Mild to moderate cardiomegaly again noted. Austin Dotson MD Assessment and Plan Problem List: (1) Atrial fibrillation ICD Code: I48.91 Status: Chronic Plan: Abdomen her A. fib, continue with Coumadin, digoxin and warfarin, follow- up INR (2) Murmur, cardiac ICD Code: R01.1 Status: Chronic Plan: Secondary to multiple valvular issues including moderate mitral valve regurgitation, severe tricuspid valve regurgitation and mild aortic valve regurgitation with patient also has elevated pulmonary artery pressures of 157 Continue with rate control, follow-up clinically (3) DM (diabetes mellitus), type 2 ICD Code: E11.9 Status: Acute Plan: We will continue with patient's diet controlled diabetes (4) PNA (pneumonia) ICD Code: J18.9 Status: Acute Plan: resume iv abx, follow bc r/o endocarditis Physician Certification 2 Midnight Certification Type: Admission for Inpatient Services Order for Inpatient Services The services are ordered in accordance with Medicare regulations or non- Medicare payer requirements, as applicable. In the case of services not specified as inpatient-only, they are appropriately provided as inpatient services in accordance with the 2-midnight benchmark. Estimated LOS (days): 4 4 days is the estimated time the patient will need to remain in the hospital, assuming treatment plan goals are met and no additional complications. Post-Hospital Plan: Home Problem Qualifiers (1) PNA (pneumonia): Taina Mak MD Dec 13, 2016 13:05
[2016-12-13] MEDS: SERTRALINE HCL 50 MG TAB PO SCH (13:54)
[2016-12-13] MEDS: DILTIAZEM-CD 240 MG CAP ER PO SCH (13:54)
[2016-12-13] MEDS: DIGOXIN 0.125 MG TAB PO SCH (13:54)
[2016-12-13] MEDS: POTASSIUM CHLORIDE 10 MEQ CONTROLLED RELEASE TAB PO SCH ×2 (13:55→20:44)
[2016-12-13] MEDS: LEVOTHYROXINE SODIUM 75 MCG TAB PO SCH (13:55)
[2016-12-13] MEDS: FUROSEMIDE 40 MG TAB PO SCH (13:55)
[2016-12-13] MEDS: AZTREONAM INJ 1,000 MG in SODIUM CHLORIDE 0.9% INJ 100 ML IV SCH ×2 (13:56→20:44)
[2016-12-13] MEDS: VANCOMYCIN INJ 1,000 MG in SODIUM CHLOR 0.9% 250 ML INJ 250 ML IV SCH (15:01)
[2016-12-13] MEDS: INSULIN NovoLIN REGULAR SUPPLEMENTAL SCALE SQ SCH ×2 (16:00→20:49)
[2016-12-13] MEDS: WARFARIN SOD 4 MG TAB PO SCH (16:25)
--- NOTE | 2016-12-13 17:14 | HHI.PR ---
Subjective Remarks RN made me aware that the patient's oxygen saturation was dropping to 86% on 2 L of O2. Also has a mild fever per RN 100.?. Patient was examined with her son at bedside. The patient denies feeling increasingly short of breath. She uses 2 L at home on a normal basis. Patient was examined. Murmur noted on cardiac exam. Lungs are clear to auscultation bilaterally. Patient has good airflow without wheezing, rhonchi, or rales. She was able sit forward for exam and take deep breaths without issue. She does not pause when speaking. O2 was increased to 3 L per RN. RN is informed to monitor patient. RN to administer Tylenol for fever. Incentive spirometry will be ordered as well as Duonebs as needed for wheezing or shortness of breath. Hypoxia may be attributed to her cardiac condition as well as pneumonia. RT then informed me that patient's O2 dropped to 79% on 2-3L O2 and she heard some crackles. I discussed this with Dr. Mak. Stat EKG, ABG, and chest x-ray ordered as well as 1 mg Bumex IV. She then updated me that patient's O2 sat increased to 95% on 6L. ABG reviewed with pH 7.492, CO2 31.0, pO2 69.2, and HCO3 23.5; respiratory alkalosis could be from pneumonia, fever, COPD.. EKG personally interpreted with atrial fibrillation HR 80, LVH, and inferior and lateral ST-T changes which are similar to prior EKG. Objective Vitals Vital Signs Date Time Temp Pulse Resp B/P Pulse Ox O2 Delivery O2 Flow Rate FiO2 12/13/16 07:45 96.5 82 22 133/78 91 12/13/16 07:05 98.5 82 16 109/49 94 Nasal Cannula 2 12/13/16 07:05 82 16 94 Nasal Cannula 2 12/13/16 04:51 95 Nasal Cannula 2.00 12/13/16 04:40 99.8 86 18 114/60 96 Nasal Cannula 2 12/13/16 03:30 100.0 86 20 124/56 94 Nasal Cannula 2 12/13/16 02:20 89 20 128/61 95 Nasal Cannula 2 12/13/16 00:11 Nasal Cannula 2 12/12/16 23:45 99.6 12/12/16 22:33 99.0 115 20 100/65 94 2 I/O 12/12/16 12/12/16 12/12/16 12/13/16 12/13/16 12/13/16 07:00 15:00 23:00 07:00 15:00 23:00 Output Total 250 ml Balance -250 ml Output Urine Total 250 ml Result Diagram: 12/13/1621912/13/16219 A/P Problem List: (1) Atrial fibrillation ICD Code: I48.91 Status: Chronic (2) Murmur, cardiac ICD Code: R01.1 Status: Chronic (3) DM (diabetes mellitus), type 2 ICD Code: E11.9 Status: Acute (4) PNA (pneumonia) ICD Code: J18.9 Status: Acute Problem Qualifiers (1) PNA (pneumonia): Jeri Ledezma Dec 13, 2016 17:14
[2016-12-13] MEDS: ACETAMINOPHEN 325 MG TAB PO PRN (17:17)
[2016-12-13] MEDS ORDERED: RESP: ALBUTEROL 2.5 MG/IPRATROPIUM 0.5 MG NEB (PRN) NEB ×2 (17:30→20:00)
[2016-12-13] MEDS ORDERED: BUMETANIDE INJ 1 MG/4 ML VIAL IV PUSH ONE (18:00)
[2016-12-13 18:09] LABS: BLOOD GAS BASE EXCESS 0.5 mmol/L (-2-2); BLOOD GAS CARBOXYHEMOGLOBIN 2.7 % (0-4); BLOOD GAS HCO3 24 mmol/L (22-26); BLOOD GAS METHEMOGLOBIN 0.9 % (0-2); BLOOD GAS O2 HGB SATURATION 91 % (90-100); BLOOD GAS OXYGEN CONTENT 12.5 Vol % (12.0-20.0); BLOOD GAS PCO2 31 mmHG (38-42); BLOOD GAS PO2 69 mmHG (61-120); BLOOD GAS TOTAL HGB 9.8 G/DL (12.0-16.0); CRITICAL VALUE NO; DRAW SITE LT RADIAL; LITER FLOW 6 L/M; NUMBER OF ARTERIAL PUNCTURES 1; OXYGEN DEVICE NASAL CANNULA; STAT YES; TEMP CORR TO 98.6; ULNAR PULSE PRESENT
--- NOTE | 2016-12-13 19:21 | RADHPO ---
EXAM DATE/TIME: 12/13/2016 18:36 [facility] COMPARISON: CHEST PA & LAT, December 13, 2016, 1:44. CHEST SINGLE AP, November 22, 2016, 9:11. INDICATIONS : Respiratory failure, short of breath, fever. MEDICAL HISTORY : Congestive heart failure. Chronic obstructive pulmonary disease. Carcinoma, breast. SURGICAL HISTORY : Pacemaker. ENCOUNTER: Subsequent ACUITY: 1 day PAIN SCORE: 0/10 LOCATION: Bilateral chest FINDINGS: Compare November 22. Previous consolidation in the left upper lobe is improving. There is a mild edema pattern. Cardiomegaly. Trace pleural fluid. Pacer lead unchanged in right ventricle. CONCLUSION: 1. Improving airspace consolidation in left upper lobe since November 22, but stable since December 13 . Mild edema pattern. Adam Lee MD on December 13, 2016 at 19:19 Board Certified Radiologist. This report was verified electronically.
[2016-12-13] MEDS ORDERED: SODIUM CHLOR 0.9% 250 ML INJ 250 ML IV ONE (21:00)
[2016-12-14] VITALS (8 sets, daily range): BP systolic 91–117; BP diastolic 49–86; PULSE 51–78; RESP 16–20; TEMP 95.7–98.9; O2SAT 93–100
[2016-12-14] MEDS: LEVOTHYROXINE SODIUM 75 MCG TAB PO SCH (06:26)
[2016-12-14] MEDS: AZTREONAM INJ 1,000 MG in SODIUM CHLORIDE 0.9% INJ 100 ML IV SCH ×3 (06:26→22:29)
[2016-12-14] MEDS: INSULIN NovoLIN REGULAR SUPPLEMENTAL SCALE SQ SCH ×4 (06:29→20:51)
[2016-12-14 07:20] LABS: BASOPHIL % 0.5 % (0.0-2.0); EOSINOPHIL # 0.3 TH/MM3 (0-0.4); EOSINOPHIL % 5.5 % (0.0-4.0); LYMPH % 12.6 % (9.0-44.0); LYMPHOCYTE # 0.7 TH/MM3 (1.0-4.8); MEAN CELL VOLUME 100.8 FL (80.0-100.0); MEAN CORPUSCULAR HGB CONC 32.7 % (32.0-36.0); MONO % 9.4 % (0.0-8.0); PLATELET COUNT 137 TH/MM3 (150-450); RED BLOOD COUNT 2.88 MIL/MM3 (4.00-5.30); RED CELL DISTRIBUTION WIDTH 17.6 % (11.6-17.2); WHITE BLOOD COUNT 5.5 TH/MM3 (4.0-11.0)
[2016-12-14 07:26] LABS: HEMO FLAGS DIFF FINAL
[2016-12-14 07:27] LABS: POTASSIUM 4.4 MEQ/L (3.5-5.1)
[2016-12-14 07:34] LABS: BICARBONATE 27.4 MEQ/L (21.0-32.0)
[2016-12-14 07:37] LABS: INTERNATIONAL NORMALIZED RATIO 2.3 RATIO; PROTHROMBIN TIME - PATIENT 26.2 SEC (9.8-11.6)
[2016-12-14] MEDS: DIGOXIN 0.125 MG TAB PO SCH (08:17)
[2016-12-14] MEDS: DILTIAZEM-CD 240 MG CAP ER PO SCH (08:18)
[2016-12-14] MEDS: DOCUSATE SODIUM 100 MG CAP PO SCH ×2 (08:18→20:51)
[2016-12-14] MEDS: POTASSIUM CHLORIDE 10 MEQ CONTROLLED RELEASE TAB PO SCH ×2 (08:18→20:51)
[2016-12-14] MEDS: FUROSEMIDE 40 MG TAB PO SCH (08:18)
[2016-12-14] MEDS: SERTRALINE HCL 50 MG TAB PO SCH (08:18)
--- NOTE | 2016-12-14 08:39 | HHI.PR ---
Subjective Remarks Patient seen in room. Some hypoxemia and respiratory distress overnight. Requiring oxygen. Toes better today. Family at bedside. Continue care and treatment plan discussed with them and they are in agreement. They will consider hospice at home once infectious causes are ruled out Objective Vitals Vital Signs Date Time Temp Pulse Resp B/P Pulse Ox O2 Delivery O2 Flow Rate FiO2 12/14/16 04:18 96.8 78 16 91/55 97 12/14/16 00:18 95.7 61 16 100/66 100 12/13/16 20:30 96 Nasal Cannula 6.00 12/13/16 20:18 97.2 73 18 83/51 95 12/13/16 18:00 95 Nasal Cannula 6.00 12/13/16 17:40 86 Nasal Cannula 3.00 12/13/16 16:00 101.2 82 20 112/59 91 12/13/16 12:00 99.3 89 20 131/73 92 I/O 12/13/16 12/13/16 12/13/16 12/14/16 12/14/16 12/14/16 07:00 15:00 23:00 07:00 15:00 23:00 Intake Total 900 ml 160 ml 400 ml Output Total 250 ml Balance -250 ml 900 ml 160 ml 400 ml Intake Oral 900 ml 160 ml 400 ml Output Urine Total 250 ml # Voids 4 1 2 # Bowel Movements 0 0 0 Result Diagram: 12/14/16 0710 12/14/16 0710 Objective Remarks GENERAL: This is a well-nourished, well-developed patient, in no apparent distress. CARDIOVASCULAR: afib with diastolic and systolic murmurs RESPIRATORY: Clear to auscultation. Breath sounds equal bilaterally. No wheezes , rales, or rhonchi. GASTROINTESTINAL: Abdomen soft, non-tender, nondistended. Normal active bowel sounds MUSCULOSKELETAL: Extremities without clubbing, cyanosis, or edema. NEURO: Alert & Oriented x4 to person, place, time, situation. Moves all ext x4 A/P Problem List: (1) Atrial fibrillation ICD Code: I48.91 Status: Chronic Plan: controlled A. fib, continue with Coumadin, digoxin and warfarin, follow- up INR 2.3 (2) Murmur, cardiac ICD Code: R01.1 Status: Chronic Plan: Secondary to multiple valvular issues including moderate mitral valve regurgitation, severe tricuspid valve regurgitation and mild aortic valve regurgitation with patient also has elevated pulmonary artery pressures of 157 Continue with rate control, follow-up clinically (3) DM (diabetes mellitus), type 2 ICD Code: E11.9 Status: Acute Plan: We will continue with patient's diet controlled diabetes (4) PNA (pneumonia) ICD Code: J18.9 Status: Acute Plan: cont iv abx, follow bc r/o endocarditis Problem Qualifiers (1) PNA (pneumonia): Taina Mak MD Dec 14, 2016 08:39
--- NOTE | 2016-12-14 12:57 | EKG ---
Date Performed: 12/13/2016 Time Performed: 18:18:58 PTAGE: 86 years EKG: Atrial fibrillation. Rightward axis LVH with secondary repolarization abnormality Inferior/ lateral ST-T changes are probably due to ventricular hypertrophy Compared to previous tracing, ventri cular response to sinus rate is slightly slower Abnormal ECG PREVIOUS TRACING : 11/22/2016 14.41 DOCTOR: Bhavik Solis Interpretating Date/Time 12/14/2016 12:53:47
[2016-12-14] MEDS: ACETAMINOPHEN 325 MG TAB PO PRN (13:45)
[2016-12-14] MEDS: VANCOMYCIN INJ 1,000 MG in SODIUM CHLOR 0.9% 250 ML INJ 250 ML IV SCH (15:00)
[2016-12-14] MEDS: WARFARIN SOD 4 MG TAB PO SCH (15:01)
[2016-12-15] VITALS (9 sets, daily range): BP systolic 95–153; BP diastolic 46–96; PULSE 74–93; RESP 16–19; TEMP 97.6–98.2; O2SAT 92–99
[2016-12-15] MEDS: AZTREONAM INJ 1,000 MG in SODIUM CHLORIDE 0.9% INJ 100 ML IV SCH ×3 (06:42→21:32)
[2016-12-15] MEDS: LEVOTHYROXINE SODIUM 75 MCG TAB PO SCH (06:43)
[2016-12-15] MEDS: INSULIN NovoLIN REGULAR SUPPLEMENTAL SCALE SQ SCH ×4 (06:47→21:00)
[2016-12-15 06:59] LABS: INTERNATIONAL NORMALIZED RATIO 3.2 RATIO; PROTHROMBIN TIME - PATIENT 37.1 SEC (9.8-11.6)
[2016-12-15] MEDS: POTASSIUM CHLORIDE 10 MEQ CONTROLLED RELEASE TAB PO SCH ×2 (08:41→21:31)
[2016-12-15] MEDS: DILTIAZEM-CD 240 MG CAP ER PO SCH (08:41)
[2016-12-15] MEDS: DOCUSATE SODIUM 100 MG CAP PO SCH ×2 (08:41→21:31)
[2016-12-15] MEDS: DIGOXIN 0.125 MG TAB PO SCH (08:42)
[2016-12-15] MEDS: SERTRALINE HCL 50 MG TAB PO SCH (08:42)
[2016-12-15] MEDS: FUROSEMIDE 40 MG TAB PO SCH (08:42)
[2016-12-15] MEDS: ACETAMINOPHEN 325 MG TAB PO PRN (10:25)
--- NOTE | 2016-12-15 13:32 | HHI.PR ---
Subjective Remarks Patient states that she is feeling better today, and much improved compared to admission. She has been weaned to 4 L nasal cannula versus wearing 2 L continuously at home. She states that she's not had any further fevers but does have some sweats. Objective Vitals Vital Signs Date Time Temp Pulse Resp B/P Pulse Ox O2 Delivery O2 Flow Rate FiO2 12/15/16 12:07 95 Nasal Cannula 5.00 12/15/16 08:14 97 Nasal Cannula 6.00 12/15/16 08:00 98.0 80 18 153/96 98 12/15/16 08:00 92 12/15/16 04:00 98.2 80 18 120/74 95 12/15/16 00:00 98.2 80 18 122/86 96 12/14/16 20:50 95 Nasal Cannula 6.00 12/14/16 20:00 98.3 78 18 117/86 93 12/14/16 20:00 51 12/14/16 16:00 97.8 74 20 107/49 98 I/O 12/14/16 12/14/16 12/14/16 12/15/16 12/15/16 12/15/16 07:00 15:00 23:00 07:00 15:00 23:00 Intake Total 400 ml 900 ml 550 ml 350 ml Output Total 600 ml Balance 400 ml 900 ml -50 ml 350 ml Intake Oral 400 ml 900 ml 550 ml 150 ml IV Total 200 ml Output Urine Total 600 ml # Voids 2 5 3 2 # Bowel Movements 0 0 Result Diagram: 12/14/16 0710 12/14/16 0710 Objective Remarks GENERAL: Well-nourished, well-developed patient. SKIN: Warm and dry. HEAD: Normocephalic. EYES: No scleral icterus. No injection or drainage. NECK: Supple, trachea midline. No JVD or lymphadenopathy. CARDIOVASCULAR: Harsh 2/6 holosystolic murmur at the left sternal border. RESPIRATORY: Breath sounds equal bilaterally, has some faint crackles in the bases bilaterally. No accessory muscle use on 4 L nasal cannula. GASTROINTESTINAL: Abdomen soft, non-tender, nondistended. EXTREMITIES: No cyanosis, or edema. NEUROLOGICAL: Awake, alert, and oriented x 3. Non-focal. A/P Problem List: (1) Atrial fibrillation ICD Code: I48.91 Status: Chronic (2) Murmur, cardiac ICD Code: R01.1 Status: Chronic (3) DM (diabetes mellitus), type 2 ICD Code: E11.9 Status: Acute (4) PNA (pneumonia) ICD Code: J18.9 Status: Acute Assessment and Plan -Bilateral pneumonia, with fevers. This is patient's second bout of pneumonia within the past month. In November she was admitted with a left upper lobe pneumonia. The patient has been on oxygen for the past year and a half. She has pulmonary hypertension and has been told she has COPD but has never had pulmonology evaluation including PFTs but has been told that she has COPD; she has a 47-isnn-oxne smoking history. BNP is not significantly elevated here so the findings on chest CT do appear to be more consistent with an inflammatory process than related to her heart valves. She also has been improving on antibiotics alone; vancomycin and Azactam. We'll consult pulmonology for follow -up as she does need pulmonology evaluation and follow-up for her pulmonary hypertension. -Valvular A. fib. Continue Coumadin, digoxin and Cardizem. -Type 2 diabetes. Diet controlled. -Mitral valve regurgitation, severe , severe tricuspid regurgitation, with severe pulmonary hypertension - She is told that she is not a candidate for repair, and that an open heart procedure would be too high risk for her. This is from her licensing representative in [place]. The patient at this time does not want an open heart surgery. 2-D echocardiogram is pending. Chest x-ray does show small bilateral pleural effusions, however BNP is not significantly elevated. -DVT prophylaxis on Coumadin. Problem Qualifiers (1) PNA (pneumonia): Keyla Wells MD Dec 15, 2016 13:31
[2016-12-15] MEDS: VANCOMYCIN INJ 1,000 MG in SODIUM CHLOR 0.9% 250 ML INJ 250 ML IV SCH (15:32)
[2016-12-15] MEDS: WARFARIN SOD 3 MG TAB PO SCH (16:32)
[2016-12-16] VITALS (8 sets, daily range): BP systolic 102–152; BP diastolic 56–80; PULSE 75–88; RESP 17–24; TEMP 96.1–100.3; O2SAT 92–96
[2016-12-16] MEDS: LEVOTHYROXINE SODIUM 75 MCG TAB PO SCH (06:21)
[2016-12-16] MEDS: AZTREONAM INJ 1,000 MG in SODIUM CHLORIDE 0.9% INJ 100 ML IV SCH ×3 (06:21→22:14)
[2016-12-16] MEDS: INSULIN NovoLIN REGULAR SUPPLEMENTAL SCALE SQ SCH ×4 (06:22→21:00)
[2016-12-16 06:26] LABS: INTERNATIONAL NORMALIZED RATIO 2.8 RATIO; PROTHROMBIN TIME - PATIENT 32.6 SEC (9.8-11.6)
[2016-12-16] MEDS: DOCUSATE SODIUM 100 MG CAP PO SCH ×2 (08:33→21:59)
[2016-12-16] MEDS: DIGOXIN 0.125 MG TAB PO SCH (08:33)
[2016-12-16] MEDS: POTASSIUM CHLORIDE 10 MEQ CONTROLLED RELEASE TAB PO SCH ×2 (08:33→21:59)
[2016-12-16] MEDS: DILTIAZEM-CD 240 MG CAP ER PO SCH (08:34)
[2016-12-16] MEDS: FUROSEMIDE 40 MG TAB PO SCH (08:34)
[2016-12-16] MEDS: SERTRALINE HCL 50 MG TAB PO SCH (08:34)
--- NOTE | 2016-12-16 13:16 | HHI.PR ---
Subjective Remarks Late entry. Patient seen at 11 a.m. Patient is feeling better and has been weaned down to 3 L nasal cannula this morning. Did have one low-grade fever 100.4 overnight. Objective Vitals Vital Signs Date Time Temp Pulse Resp B/P Pulse Ox O2 Delivery O2 Flow Rate FiO2 12/16/16 12:19 96.1 88 18 111/74 93 12/16/16 08:19 98.6 87 17 121/80 92 12/16/16 07:35 96 Nasal Cannula 4.00 12/16/16 04:00 98.3 78 20 152/73 96 12/16/16 00:00 100.3 75 24 121/56 94 12/15/16 21:55 92 Nasal Cannula 4.00 12/15/16 20:00 97.6 77 19 137/70 99 12/15/16 20:00 80 12/15/16 16:00 97.9 74 16 113/53 94 I/O 12/15/16 12/15/16 12/15/16 12/16/16 12/16/16 12/16/16 07:00 15:00 23:00 07:00 15:00 23:00 Intake Total 350 ml 960 ml 485 ml Balance 350 ml 960 ml 485 ml Intake Oral 150 ml 960 ml 240 ml IV Total 200 ml 245 ml # Voids 2 5 2 # Bowel Movements 0 Result Diagram: 12/14/16 0710 12/14/16 0710 Objective Remarks GENERAL: Well-nourished, well-developed patient. SKIN: Warm and dry. HEAD: Normocephalic. EYES: No scleral icterus. No injection or drainage. NECK: Supple, trachea midline. No JVD or lymphadenopathy. CARDIOVASCULAR: Harsh 2/6 holosystolic murmur at the left sternal border. RESPIRATORY: Breath sounds equal bilaterally, has some faint crackles in the bases bilaterally. No accessory muscle use on 4 L nasal cannula. GASTROINTESTINAL: Abdomen soft, non-tender, nondistended. EXTREMITIES: No cyanosis, or edema. NEUROLOGICAL: Awake, alert, and oriented x 3. Non-focal. A/P Problem List: (1) Atrial fibrillation ICD Code: I48.91 Status: Chronic (2) Murmur, cardiac ICD Code: R01.1 Status: Chronic (3) DM (diabetes mellitus), type 2 ICD Code: E11.9 Status: Acute (4) PNA (pneumonia) ICD Code: J18.9 Status: Acute Assessment and Plan -Bilateral pneumonia, with fevers. This is patient's second bout of pneumonia within the past month. In November she was admitted with a left upper lobe pneumonia. BNP is not significantly elevated here so the findings on chest CT do appear to be more consistent with an inflammatory process than related to her heart valves. She also has been improving on antibiotics alone; vancomycin and Azactam. -Blood cultures negative for 4 days. Likely switch to PO levaquin tomorrow. -DC planning 1-2 days. -Valvular A. fib. Continue Coumadin, digoxin and Cardizem. -Pulmonary HTN - The patient has been on oxygen for the past year and a half. She has pulmonary hypertension and has been told she has COPD but has never had pulmonology evaluation including PFTs but has been told that she has COPD; she has a [id number] smoking history. We'll consult pulmonology for follow-up as she does need pulmonology evaluation and follow-up for her pulmonary hypertension. -Mitral valve regurgitation, severe , severe tricuspid regurgitation, with severe pulmonary hypertension - She is told that she is not a candidate for repair, and that an open heart procedure would be too high risk for her. This is from her lead janitor in [place]. The patient at this time does not want an open heart surgery. 2-D echocardiogram is pending. Chest CT does show small b/l pleural effusions. BNP is not significantly elevated. -Type 2 diabetes. Diet controlled. -DVT prophylaxis on Coumadin. Discharge Planning Home with [facility] 1 -2 days. Problem Qualifiers (1) PNA (pneumonia): Keyla Wells MD Dec 16, 2016 13:16
[2016-12-16] MEDS ORDERED: PHARMACY ORDERED LAB XX ONE (14:45)
[2016-12-16] MEDS: WARFARIN SOD 3 MG TAB PO SCH (16:43)
[2016-12-17] VITALS: BP 100/54; PULSE 82; RESP 20; TEMP 99.4; O2SAT 96
[2016-12-17 04:00] VITALS: BP 119/72; PULSE 80; RESP 20; TEMP 98.4; O2SAT 95
[2016-12-17] MEDS: LEVOTHYROXINE SODIUM 75 MCG TAB PO SCH (05:35)
[2016-12-17] MEDS: AZTREONAM INJ 1,000 MG in SODIUM CHLORIDE 0.9% INJ 100 ML IV SCH (05:35)
[2016-12-17 06:20] LABS: AUTOMATED NEUTROPHIL # 3.9 TH/MM3 (1.8-7.7); BASOPHIL % 0.3 % (0.0-2.0); EOSINOPHIL # 0.3 TH/MM3 (0-0.4); EOSINOPHIL % 5.8 % (0.0-4.0); HEMATOCRIT 31.1 % (35.0-46.0); HEMO FLAGS DIFF FINAL; LYMPH % 16.8 % (9.0-44.0); LYMPHOCYTE # 0.9 TH/MM3 (1.0-4.8); MEAN CELL VOLUME 98.4 FL (80.0-100.0); MEAN CORPUSCULAR HEMOGLOBIN 32.1 PG (27.0-34.0); MEAN CORPUSCULAR HGB CONC 32.6 % (32.0-36.0); MONO % 9.6 % (0.0-8.0); NEUT % 67.5 % (16.0-70.0); PLATELET COUNT 234 TH/MM3 (150-450); RED BLOOD COUNT 3.16 MIL/MM3 (4.00-5.30); RED CELL DISTRIBUTION WIDTH 17.4 % (11.6-17.2); WHITE BLOOD COUNT 5.6 TH/MM3 (4.0-11.0)
[2016-12-17 06:34] LABS: POTASSIUM 4.1 MEQ/L (3.5-5.1)
[2016-12-17 06:38] LABS: BICARBONATE 24.7 MEQ/L (21.0-32.0)
[2016-12-17 06:41] LABS: INTERNATIONAL NORMALIZED RATIO 2.4 RATIO; PROTHROMBIN TIME - PATIENT 27.1 SEC (9.8-11.6)
[2016-12-17] MEDS: INSULIN NovoLIN REGULAR SUPPLEMENTAL SCALE SQ SCH ×2 (07:00→11:00)
[2016-12-17 07:30] VITALS: O2SAT 97
[2016-12-17 08:00] VITALS: BP 115/74; PULSE 84; RESP 20; TEMP 98.3; O2SAT 93
[2016-12-17] MEDS: DIGOXIN 0.125 MG TAB PO SCH (09:00)
[2016-12-17] MEDS: SERTRALINE HCL 50 MG TAB PO SCH (10:54)
[2016-12-17] MEDS: POTASSIUM CHLORIDE 10 MEQ CONTROLLED RELEASE TAB PO SCH (10:54)
[2016-12-17] MEDS: DILTIAZEM-CD 240 MG CAP ER PO SCH (10:54)
[2016-12-17] MEDS: DOCUSATE SODIUM 100 MG CAP PO SCH (10:54)
[2016-12-17] MEDS: FUROSEMIDE 40 MG TAB PO SCH (10:55)
[2016-12-17] MEDS ORDERED: IPRASOL INH (11:29)
[2016-12-17] MEDS ORDERED: AZIT500T2 PO (11:29)
[2016-12-17] MEDS ORDERED: NEBULIZER1 MI1 (11:29)
[2016-12-17] MEDS ORDERED: MISC-163 (11:29)
[2016-12-17] MEDS ORDERED: MOXI1TAB2 PO (11:29)
--- NOTE | 2016-12-17 11:31 | HHI.FF ---
Face to Face Verification Diagnosis: (1) PNA (pneumonia) (2) Pulmonary hypertension Physical Therapy Order: Evaluate and Treat Home Health Nursing Order: Medical education Signs/symptoms of disease process Oxygen administration education Nursing assessment with vital signs I have seen patient Fozia Rutledge on 12/17/16. My clinical findings support the need for the requested home health care services because: Patient has SOB Need for psychosocial assistance I certify that my clinical findings support that this patient is homebound because: Poor cardiac reserve Keyla Wells MD Dec 17, 2016 11:31
--- NOTE | 2016-12-17 11:40 | HHI.DS ---
Discharge Summary Admission Date Dec 13, 2016 at 12:52 Discharge Date: Dec 17, 2016 Admitting Diagnosis fever, pneumonia, shortness of breath (1) Atrial fibrillation ICD Code: I48.91 (2) DM (diabetes mellitus), type 2 ICD Code: E11.9 (3) PNA (pneumonia) ICD Code: J18.9 (4) MR (mitral regurgitation) ICD Code: I34.0 (5) Pulmonary hypertension ICD Code: I27.2 (6) Hypoxia ICD Code: R09.02 Procedures None Brief History - From Admission Patient is a 85-year-old female with multiple valvular issues including severe tricuspid valve regurgitation, moderate mitral valve regurgitation and mild aortic valve regurgitation as per recent 2-D echocardiogram November 2016 with preserved left ventricular ejection fraction. She had also been admitted to the hospital for treatment of left upper lobe pneumonia the previous month. Patient says that she did complete her antibiotics but immediately began feeling worse with fever. She had increased shortness of breath, dyspnea, fevers and chills and pelvic and felt very poorly. Patient does have multiple valvular issues and has been follow-up with her automobile accessories salesperson Dr. in [place] and has been determined that she does not qualify for valve repair and would need a open-heart surgery for valve replacement, the patient is DO NOT RESUSCITATE and does not want this. She also has pulmonary hypertension and uses 2 L of oxygen at home. In the ED she was tachycardic, tachypneic and appears clinically ill. Chest CT revealed bilateral patchy airspace disease presumably infectious, and showed that the previous consolidation of the left upper lobe was improved. Also small bilateral pleural effusions. BNP was not elevated. CBC/BMP: 12/17/16 0600 12/17/16 0600 Significant Findings Laboratory Tests Test 12/15/16 12/16/16 12/17/16 05:33 05:30 06:00 Prothrombin Time 37.1 SEC 32.6 SEC 27.1 SEC (9.8-11.6) (9.8-11.6) (9.8-11.6) Red Blood Count 3.16 MIL/MM3 (4.00-5.30) Hemoglobin 10.1 GM/DL (11.6-15.3) Hematocrit 31.1 % (35.0-46.0) Red Cell Distribution Width 17.4 % (11.6-17.2) Monocytes (%) (Auto) 9.6 % (0.0-8.0) Eosinophils (%) (Auto) 5.8 % (0.0-4.0) Lymphocytes # (Auto) 0.9 TH/MM3 (1.0-4.8) Calcium Level 8.3 MG/DL (8.5-10.1) Imaging Last Impressions Chest X-Ray 12/13/16 1758 Signed Impressions: Service Date/Time: Tuesday, December 13, 2016 18:36 - CONCLUSION: 1. Improving airspace consolidation in left upper lobe since November 22, but stable since December 13. Mild edema pattern. Adam Lee MD Chest CT 12/13/16 0400 Signed Impressions: Service Date/Time: Tuesday, December 13, 2016 04:20 - CONCLUSION: 1. Widespread patchy airspace disease has developed of both lungs, presumably infectious. 2. The dense consolidation of the left upper lobe has improved in the interim. 3. Mildly enlarged mediastinal lymph nodes again seen, nonspecific but presumably reactive. 4. Small bilateral pleural effusions, new on the right and larger on the left. 5. Enlarged heart. Austin Dotson MD PE at Discharge GENERAL: Well-nourished, well-developed patient. SKIN: Warm and dry. HEAD: Normocephalic. EYES: No scleral icterus. No injection or drainage. NECK: Supple, trachea midline. No JVD or lymphadenopathy. CARDIOVASCULAR: Harsh 2/6 holosystolic murmur at the left sternal border. RESPIRATORY: Breath sounds equal bilaterally, has some faint crackles in the bases bilaterally. No accessory muscle use on 4 L nasal cannula. GASTROINTESTINAL: Abdomen soft, non-tender, nondistended. EXTREMITIES: No cyanosis, or edema. NEUROLOGICAL: Awake, alert, and oriented x 3. Non-focal. Hospital Course The patient was admitted and treated with broad-spectrum IV antibiotics with Azactam and vancomycin IV. She did improve and was weaned to 3 L nasal cannula over several days. Pulmonology was consulted as the patient requires evaluation for the pulmonary hypertension and has never undergone pulmonary function tests. I did discuss the patient with Dr. Martinez today. He will be following up the patient in his office. I discussed her care in detail with her as well as her son. She plans to follow-up with a local automobile accessories salesperson as well. She will be discharged with a respiratory fluoroquinolone moxifloxacin, as well as Zithromax. She is allergic to penicillin this we could not give her a cephalosporin at discharge. Home health care was arranged for the patient as well. Pt Condition on Discharge: Stable Discharge Disposition: Disch w/ Home Health Serv Discharge Time: > 30 minutes Discharge Instructions DIET: Follow Instructions for: Heart Healthy Diet, Coumadin (Warfarin) Diet Activities you can perform: Regular-No Restrictions Follow up Referrals: Cardiology - 1 Month with Jignesh Sierra MD PCP Follow-up - 1 Week Pulmonology - 2 Weeks with Esau Cifuentes MD [facility]/ with [facility] New Medications: 3-in-1 Bedside Toilet (3-in-1 Bedside Toilet) 1 Mis Mis 1 EA .ROUTE DIRECTED #1 EA Azithromycin (Azithromycin) 500 Mg Tab 500 MG PO DAILY Infection #7 Ref 0 TAB Ipratropium-Albuterol Neb (Duoneb) 0.5-2.5 Mg/3 Ml Neb 1 NEBULE INH Q4HR NEB Breathing Treatment #180 Ref 0 NEBULE Moxifloxacin (Moxifloxacin) 400 Mg Tab 400 MG PO DAILY Infection #10 Ref 0 TAB Nebulizer (Nebulizer) 1 Mis Mis 1 EA .ROUTE DIRECTED Breathing Treatment #1 Ref 0 EA Continued Medications: Anastrozole (Arimidex) 1 Mg Tab 1 MG PO DAILY Breast Cancer #30 Ref 0 TAB Digoxin (Digoxin) 0.125 Mg Tab 0.125 MG PO DAILY Regulate Heart Beat #30 Ref 0 TAB Diltiazem ER 24 HR (Cartia Xt) 240 Mg Caper 240 MG PO DAILY #30 Ref 0 CAP Furosemide (Furosemide) 40 Mg Tab 40 MG PO DAILY #60 Ref 0 TAB Levothyroxine (Levothyroxine) 75 Mcg Tab 75 MCG PO DAILY Thyroid #90 Ref 1 TAB Potassium Chloride ER (Klor-Con 10) 10 Meq Tab 20 MEQ PO BID Electrolyte Replacement #60 Ref 0 TAB Sertraline (Sertraline) 50 Mg Tab 50 MG PO DAILY #30 Ref 0 TAB Warfarin (Warfarin) 5 Mg Tab 4 MG PO DAILY Blood Clot Prevention #30 Ref 0 TAB Keyla Wells MD Dec 17, 2016 11:40
[2016-12-17 12:00] VITALS: BP 110/65; PULSE 91; RESP 20; TEMP 97.2; O2SAT 97
--- NOTE | 2016-12-17 16:34 | MB ---
cc: ESAU CIFUENTES M.D. DATE OF CONSULTATION 12/17/2016 REASON FOR CONSULTATION Respiratory failure, congestive heart failure, pulmonary hypertension and pneumonia. HISTORY OF PRESENT ILLNESS Mrs. Rutledge is an 85-year-old female admitted with temperature elevation and lung infiltrates with a diagnosis of pneumonia. She has a known history of valvular heart disease and associated pulmonary hypertension. She has been hospitalized for same treated with antibiotic therapy, continues on oxygen therapy with improvement. The patient is improved to a point where she is ready for discharge and I was asked to see her prior her discharge to be established as a new patient. PAST MEDICAL HISTORY The patient's past medical history is that of: 1. Valvular heart disease 2. Rheumatic fever 3. Severe mitral regurgitation 4. Pulmonary hypertension of severe degree 5. Atrial fibrillation 6. Had a previous lumpectomy for breast cancer. 7. Thyroidectomy for a goiter ALLERGIES CODEINE AND PENICILLIN. FAMILY HISTORY Hypertension, heart disease otherwise unremarkable. SOCIAL HISTORY Does not smoke, does not drink. Lives by herself. MEDICATIONS At present include: 1. Coumadin 2. Lasix 3. Potassium 4. Thyroid replacement 5. Zoloft 6. Colace 7. Senokot 8. Dulcolax 9. MOM as needed. PHYSICAL EXAM On exam, the patient is alert. VITAL SIGNS: Temperature 97, pulse 90, respiration 20, blood pressure 110/60, oxygen saturation 97% two liters oxygen nasal cannula. HEENT: Exam unremarkable. Eyes without icterus. NECK: Without adenopathy, thyroid enlargement. Central trachea. CHEST: Without dullness to percussion, clear to auscultation. CARDIAC: PMI six left space outside midclavicular line. 2/6 ejection systolic murmur left sternal border. ABDOMEN: Lax, bowel sounds audible. Liver two fingerbreadths below the right costal margin. EXTREMITIES: No clubbing or cyanosis, trace ankle edema. NEUROLOGIC EXAMINATION: No focal abnormality. SKIN: Normal. LYMPHATICS: No lymphadenopathy. LABORATORY DATA CT scan of the chest done on December 13 is with bilateral patchy infiltrates and dense consolidation left upper lung which had improved from previous. Small bilateral pleural effusions are noted more so on the left. Cardiomegaly is noted. Chest x-ray of the same day is with improving left upper lobe pneumonia. White count 5.6, hemoglobin 10, hematocrit 31, platelets at 234,000. Sodium 4.1, potassium 4.1, BUN 15, creatinine 0.5, INR 2.4. ABG on 12/13/2016 pH 7.49, pCO2 31 and a pO2 of 69 on six liters oxygen by nasal cannula. IMPRESSION 1. Hypoxic respiratory failure on oxygen therapy 2. Congestive heart failure 3. Valvular heart disease 4. History of rheumatic fever. 5. Pulmonary hypertension 6. Atrial fibrillation 7. Resolving pneumonia PLAN The patient is being discharged on oral therapy at present she is clinically improved and she is eager to go home to continue oxygen therapy at home. Further evaluation of pulmonary status including pulmonary function will be done as an outpatient and options for therapy from a cardiac, as well as pulmonary standpoint will be discussed. She has an appointment with Dr. Sierra as well for further cardiac evaluation. I do thank you for asking me to partake in Mrs. Floyd's care. Esau Cifuentes MD WWW/MARYAM /4:07 PM /4:20 PM
[2016-12-23] MEDS ORDERED: NEBULIZER1 MI1 (09:12)
== END 2016-12-17 17:16 | disposition home health service (06) | DRG 194 ==
LOC: PHED 22:08 → PHEDA 12-13 04:02 → PH3B 12-13 07:51 → OBSVTOIN 12-13 12:52
PROVIDERS: ADMIT Family Medicine; ATTEND Family Medicine
PROC: 3E0F7GC Introduction of Other Therapeutic Substance into Respiratory Tract, Via Natural or Artificial Opening (ICD-10-PCS; principal; 2016-12-13)
DX: J18.9 Pneumonia, unspecified organism (principal); E87.3 Alkalosis; I27.2 Other secondary pulmonary hypertension; I08.3 Combined rheumatic disorders of mitral, aortic and tricuspid valves; I50.9 Heart failure, unspecified; Z99.81 Dependence on supplemental oxygen; I48.91 Unspecified atrial fibrillation; J44.9 Chronic obstructive pulmonary disease, unspecified; M19.90 Unspecified osteoarthritis, unspecified site; I10 Essential (primary) hypertension; E11.9 Type 2 diabetes mellitus without complications; G47.30 Sleep apnea, unspecified; Z66 Do not resuscitate; Z88.5 Allergy status to narcotic agent; Z88.0 Allergy status to penicillin; Z87.440 Personal history of urinary (tract) infections; Z79.01 Long term (current) use of anticoagulants; Z85.3 Personal history of malignant neoplasm of breast
CPT/HCPCS: 36600; 71010; 71020; 71250; 76937; 80048; 80053; 81001; 82550; 82805; 82948; 83605; 83735; 83880; 84484; 85025; 85610; 87040; 93005; 94150; 94640; 94664; J2405; J3370; J7030; J7050